=== PATIENT | male | born 1955 | race Caucasian/White ===

== ENCOUNTER 2016-04-12 14:35 | Inpatient (IN) | payer BC ==
[2016-04-12] MEDS ORDERED: ASPIRIN 81 MG TABLET, CHEWABLE PO ONE (14:48)
--- NOTE | 2016-04-12 14:51 | ER Document Report ---
ED Medical Screen (RME) - General Stated Complaint: SHORTNESS OF BREATH, NECK PAIN Mode of Arrival: Ambulatory Information source: Patient Notes: 60 y/o M presents to ED c/o sob and associated bilateral neck pain since this morning. States sob is worse with exertion. Denies fever, recent illness, or chest pain. TRAVEL OUTSIDE OF THE [place] IN LAST 30 DAYS: No - Related Data Allergies/Adverse Reactions: No Known Allergies Allergy (Verified 04/12/16 14:48) Past Medical History - Past Medical History Cardiac Medical History: Reports: Hx Hypercholesterolemia, Hx Hypertension - pt' s md took him bp meds Pulmonary Medical History: Reports: Hx Bronchitis Denies: Hx Tuberculosis GI Medical History: Reports: Hx Gastroesophageal Reflux Disease Musculoskeltal Medical History: Reports Hx Arthritis Psychiatric Medical History: Reports: Hx Depression Past Surgical History: Reports: Hx Abdominal Surgery - hernia repair, Hx Herniorrhaphy, Hx Orthopedic Surgery - bilateral knee replacements, Hx Tonsillectomy - 1960 - Immunizations Hx Diphtheria, Pertussis, Tetanus Vaccination: No Physical Exam - General General appearance: Alert In distress: None - Respiratory Respiratory status: No respiratory distress Breath sounds: Normal - Cardiovascular Pulses: Normal: Radial
[2016-04-12 15:15] LABS: ABSOLUTE BASOPHILS # (AUTO) 0.1 10^3/uL (0.0-0.2); ABSOLUTE EOSINOPHILS # (AUTO) 0.1 10^3/uL (0.0-0.6); ABSOLUTE LYMPHOCYTES (AUTO) 1.8 10^3/uL (0.5-4.7); ABSOLUTE MONOCYTES (AUTO) 0.6 10^3/uL (0.1-1.4); ABSOLUTE NEUT (AUTO) 5.1 10^3/uL (1.7-8.2); BASOPHILS % (AUTO) 0.7 % (0-2); EOSINOPHILS % (AUTO) 1.6 % (0-6); HEMATOCRIT 42.3 % (37.9-51.0); HEMOGLOBIN 14.4 g/dL (13.5-17.0); HGB HCT DIFFERENCE 0.9; LYMPHOCYTES % (AUTO) 23.3 % (13-45); MEAN CORPUSCULAR HEMOGLOBIN 28.5 pg (27.0-33.4); MEAN CORPUSCULAR VOLUME 84 fl (80-97); MONOCYTES % (AUTO) 7.9 % (3-13); RED BLOOD COUNT 5.06 10^6/uL (4.35-5.55); RED CELL DISTRIBUTION WIDTH 14.2 % (11.5-14.0); SEGMENTED NEUTROPHILS % (AUTO) 66.5 % (42-78); WHITE BLOOD COUNT 7.7 10^3/uL (4.0-10.5)
[2016-04-12 15:28] LABS: BLOOD UREA NITROGEN 14 mg/dL (7-20); CALCIUM 9.4 mg/dL (8.4-10.2); CREATININE RESULT 0.84 mg/dL (0.52-1.25); GLUCOSE 103 mg/dL (75-110)
[2016-04-12 15:29] LABS: ALANINE AMINOTRANSFERASE 45 U/L (21-72); ALBUMIN 4.2 g/dL (3.5-5.0); ALKALINE PHOSPHATASE 105 U/L (38-126); ANION GAP 10 (5-19); ASPARTATE AMINO TRANSFERASE 35 U/L (17-59); BILIRUBIN,TOTAL 0.7 mg/dL (0.2-1.3); CARBON DIOXIDE 22 mmol/L (22-30); CHLORIDE 108 mmol/L (98-107); CREATINE KINASE 533 U/L (55-170); POTASSIUM 4.2 mmol/L (3.6-5.0); SODIUM 139.6 mmol/L (137-145)
[2016-04-12] MEDS ORDERED: NORMAL SALINE 1000 ML 1,000 ML IV ONE (15:47)
[2016-04-12] MEDS ORDERED: NORMAL SALINE 1000 ML 500 ML IV ONE (15:47)
[2016-04-12 15:53] LABS: CREATINE KINASE MB 4.34 ng/mL (<4.55)
[2016-04-12 15:56] LABS: TROPONIN I < 0.012 ng/mL
[2016-04-12] MEDS ORDERED: ENOXAPARIN SODIUM INJ 120 MG/0.8 ML DISP.SYRIN SUBCUT SCH (16:45)
--- NOTE | 2016-04-12 16:45 | ER Document Report ---
ED General - General Chief Complaint: Shortness Of Breath Stated Complaint: SHORTNESS OF BREATH, NECK PAIN Mode of Arrival: Ambulatory TRAVEL OUTSIDE OF THE [place] IN LAST 30 DAYS: No - HPI Patient complains to provider of: neck pain shortness of breath Notes: Patient coming in today with acute onset of shortness of breath. Patient also states he was having neck pain. 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 Patient has a history of PE. Patient currently has stable vital signs is no obvious distress. Denies any recent fevers chills nausea vomiting diarrhea chest pain abdominal pain. - Related Data Allergies/Adverse Reactions: No Known Allergies Allergy (Verified 04/12/16 14:48) Home Medications: Current Home Medications No Home Medications 04/12/16 [History] Past Medical History - General Information source: Patient - Social History Smoking Status: Current Some Day Smoker Chew tobacco use (# tins/day): No Frequency of alcohol use: None Drug Abuse: None Family History: Reviewed & Not Pertinent Patient has suicidal ideation: No Patient has homicidal ideation: No - Past Medical History Cardiac Medical History: Reports: Hx Hypercholesterolemia, Hx Hypertension - pt' s md took him bp meds Pulmonary Medical History: Reports: Hx Bronchitis Denies: Hx Tuberculosis Renal/ Medical History: Denies: Hx Peritoneal Dialysis GI Medical History: Reports: Hx Gastroesophageal Reflux Disease Musculoskeltal Medical History: Reports Hx Arthritis Psychiatric Medical History: Reports: Hx Depression Past Surgical History: Reports: Hx Abdominal Surgery - hernia repair, Hx Herniorrhaphy, Hx Orthopedic Surgery - bilateral knee replacements, Hx Tonsillectomy - 1960 - Immunizations Hx Diphtheria, Pertussis, Tetanus Vaccination: No Review of Systems - Review of Systems Constitutional: No symptoms reported EENT: No symptoms reported Cardiovascular: Chest pain Respiratory: Cough, Short of breath Gastrointestinal: No symptoms reported Genitourinary: No symptoms reported Male Genitourinary: No symptoms reported Musculoskeletal: No symptoms reported Skin: No symptoms reported Hematologic/Lymphatic: No symptoms reported Neurological/Psychological: No symptoms reported -: Yes All other systems reviewed and negative Physical Exam - Vital signs Vitals: Resp Pulse Ox 16 95 04/12/16 15:32 04/12/16 15:32 Interpretation: Normal - General General appearance: Appears well, Alert - HEENT Head: Normocephalic, Atraumatic Eyes: Normal Pupils: PERRL Notes: Patient has tenderness to palpation of his neck along the sternocleidomastoid muscle no bruits auscultated - Respiratory Respiratory status: No respiratory distress Chest status: Nontender Breath sounds: Normal Chest palpation: Normal - Cardiovascular Rhythm: Regular Heart sounds: Normal auscultation Murmur: No - Abdominal Inspection: Normal Distension: No distension Bowel sounds: Normal Tenderness: Nontender Organomegaly: No organomegaly - Back Back: Normal, Nontender - Extremities General upper extremity: Normal inspection, Nontender, Normal color, Normal ROM , Normal temperature General lower extremity: Normal inspection, Nontender, Normal color, Normal ROM , Normal temperature, Normal weight bearing. No: Lei's sign - Neurological Neuro grossly intact: Yes Cognition: Normal Orientation: AAOx4 Elmer Coma Scale Eye Opening: Spontaneous Elmer Coma Scale Verbal: Oriented Elmer Coma Scale Motor: Obeys Commands Elmer Coma Scale Total: 15 Speech: Normal Motor strength normal: LUE, RUE, LLE, RLE Sensory: Normal - Psychological Associated symptoms: Normal affect, Normal mood - Skin Skin Temperature: Warm Skin Moisture: Dry Skin Color: Normal Course - Re-evaluation Re-evalutation: 04/12/16 19:53 CTA of the neck CT of the chest was performed showing multiple PEs saddle PE have PE burden. Otherwise patient's hemodynamically stable. Consult the hospitalist service although the patient seemed medically stable due to his large PE burden will admit the patient for further evaluation. Requesting Lovenox which was a release coordinator per hospitalist request. Patient will be admitted for further evaluation. Bilateral Dopplers were performed showing also patient has a DVT. - Vital Signs Vital signs: Temp Pulse Resp BP Pulse Ox 16 138/98 H 94 04/12/16 18:00 04/12/16 16:25 04/12/16 18:00 - Laboratory Result Diagrams: 04/12/16 15:00 04/12/16 15:00 Laboratory results interpreted by me: 04/12/16 04/12/16 15:00 15:00 RDW 14.2 H Plt Count 111 L Chloride 108 H Creatine Kinase 533 H Critical Care Note - Critical Care Note Total time excluding time spent on procedures (mins): 35 Comments: Multiple evaluations for patient with multiple PEs Discharge - Discharge Clinical Impression: Saddle pulmonary embolus Qualifiers: Chronicity: acute Acute cor pulmonale presence: without acute cor pulmonale Qualified Code(s): I26.92 - Saddle embolus of pulmonary artery without acute cor pulmonale Deep vein thrombosis (DVT) of right lower extremity Qualifiers: Affected thrombotic vein of extremity: tibial Chronicity: unspecified Qualified Code(s): I82.441 - Acute embolism and thrombosis of right tibial vein Disposition: ADMITTED INPATIENT Admitting Provider: Hospitalist - [facility] Admitted: Telemetry
[2016-04-12 17:32] LABS: PROTHROMBIN TIME 14.4 SEC (11.4-15.4)
[2016-04-12 17:33] LABS: PARTIAL THROMBOPLASTIN TIME 30.9 SEC (23.5-35.8)
--- NOTE | 2016-04-12 18:03 | XCELERA REPORT ---
[address] [address] Lower Extremity Venous Evaluation Name: ANDREW PEREZ Age: 60 yrs Gender: Male : 1955 Patient Status: Inpatient Patient Location: \S\ED02\S\A Study Date: 04/12/2016 05:03 PM Procedure: Color flow and duplex imaging bilaterally of the veins of the lower extremities as well as the Common Femoral veins. Reason For Study: massive pe eval for dvt Ordering Physician: NERIS CORRAL Performed By: Chiki Hall Right Sided Venous Evaluation Abnormal vessel filling, lack of compression and no Colour flow in one of two Posterior Tibial veins, otherwise normal veins. Left Sided Venous Evaluation Normal vessel filling wall to wall, compression and augmentation as well as Colour flow down to the infrageniculate veins. Critical Findings Called in to the ER at 1800. Interpretation Summary Limited DVT in right leg. : NERIS CORRAL > Tomás Soto
[2016-04-12] MEDS ORDERED: ACETAMINOPHEN 325 MG TABLET PO PRN (18:11)
--- NOTE | 2016-04-12 18:28 | PDOC H&P ---
History of Present Illness Admission Date/PCP: 04/12/16 17:23 KAILASH GAGE MD Patient complains of: Shortness of breath and neck pain History of Present Illness: ANDREW PEREZ is a 60 year old male Was at work is evening at [employer] where he works in the [employer] department When he started feeling extremely short of breath Without any chest pain Patient was brought to the ED for evaluation; CTA of the neck was unremarkable CTA of the chest showed acute bilateral pulmonary emboli Venous ultrasound lower extremities was consistent with DVT in the right posterior tibial veins Patient received Lovenox at 1 mg per KG and was subsequently admitted under hospitalist service to telemetry unit Past Medical History Cardiac Medical History: Reports: Hyperlipidema, Hypertension - pt's md took him bp meds Pulmonary Medical History: Reports: Bronchitis Denies: Tuberculosis GI Medical History: Reports: Gastroesophageal Reflux Disease Musculoskeltal Medical History: Reports: Arthritis Psychiatric Medical History: Reports: Depression Past Surgical History Past Surgical History: Reports: Herniorrhaphy, Orthopedic Surgery - bilateral knee replacements, Tonsillectomy - 1960 Social History Smoking Status: Current Some Day Smoker Hx Recreational Drug Use: No Hx Prescription Drug Abuse: No - Advance Directive Resuscitation Status: Full Code Surrogate healthcare decision maker:: Cornelia Family History Family History: Malignancy Parental Family History Reviewed: Yes - father cancer brain , mom alive healthy Children Family History Reviewed: Yes Sibling(s) Family History Reviewed.: Yes - 2 brothres, 1 sister healthy - no blood clots . Medication/Allergy Home Medications: No Home Medications 04/12/16 Allergies/Adverse Reactions: No Known Allergies Allergy (Verified 04/12/16 14:48) Physical Exam Vital Signs: Temp Pulse Resp BP Pulse Ox 20 138/98 H 94 04/12/16 16:25 04/12/16 16:25 04/12/16 16:25 General appearance: PRESENT: no acute distress, well-developed, well-nourished Head exam: PRESENT: atraumatic, normocephalic Eye exam: PRESENT: conjunctiva pink, EOMI, PERRLA. ABSENT: scleral icterus Ear exam: PRESENT: normal external ear exam Mouth exam: PRESENT: moist, tongue midline Neck exam: ABSENT: carotid bruit, JVD, lymphadenopathy, thyromegaly Respiratory exam: PRESENT: clear to auscultation angie. ABSENT: rales, rhonchi, wheezes Cardiovascular exam: PRESENT: RRR. ABSENT: diastolic murmur, rubs, systolic murmur Pulses: PRESENT: normal dorsalis pedis pul Vascular exam: PRESENT: normal capillary refill GI/Abdominal exam: PRESENT: normal bowel sounds, soft. ABSENT: distended, guarding, mass, organolmegaly, rebound, tenderness Rectal exam: PRESENT: deferred Extremities exam: PRESENT: full ROM. ABSENT: calf tenderness, clubbing, pedal edema Neurological exam: PRESENT: alert, awake, oriented to person, oriented to place , oriented to time, oriented to situation, CN II-XII grossly intact. ABSENT: motor sensory deficit Psychiatric exam: PRESENT: appropriate affect, normal mood. ABSENT: homicidal ideation, suicidal ideation Skin exam: PRESENT: dry, intact, warm. ABSENT: cyanosis, rash Results Laboratory Results: Labs- Entire Visit 04/12/16 04/12/16 04/12/16 15:00 15:00 15:00 WBC 7.7 RBC 5.06 Hgb 14.4 Hct 42.3 MCV 84 MCH 28.5 MCHC 34.0 RDW 14.2 H Plt Count 111 L Seg Neutrophils % 66.5 Lymphocytes % 23.3 Monocytes % 7.9 Eosinophils % 1.6 Basophils % 0.7 Absolute Neutrophils 5.1 Absolute Lymphocytes 1.8 Absolute Monocytes 0.6 Absolute Eosinophils 0.1 Absolute Basophils 0.1 PT INR APTT Sodium 139.6 Potassium 4.2 Chloride 108 H Carbon Dioxide 22 Anion Gap 10 BUN 14 Creatinine 0.84 Est GFR ( Amer) > 60 Est GFR (Non-Af Amer) > 60 Glucose 103 Calcium 9.4 Total Bilirubin 0.7 Direct Bilirubin 0.0 AST 35 ALT 45 Alkaline Phosphatase 105 Creatine Kinase 533 H CK-MB (CK-2) 4.34 Troponin I < 0.012 Total Protein 7.0 Albumin 4.2 04/12/16 16:20 WBC RBC Hgb Hct MCV MCH MCHC RDW Plt Count Seg Neutrophils % Lymphocytes % Monocytes % Eosinophils % Basophils % Absolute Neutrophils Absolute Lymphocytes Absolute Monocytes Absolute Eosinophils Absolute Basophils PT 14.4 INR 1.08 APTT 30.9 Sodium Potassium Chloride Carbon Dioxide Anion Gap BUN Creatinine Est GFR ( Amer) Est GFR (Non-Af Amer) Glucose Calcium Total Bilirubin Direct Bilirubin AST ALT Alkaline Phosphatase Creatine Kinase CK-MB (CK-2) Troponin I Total Protein Albumin 04/12/16 04/12/16 15:00 15:00 Creatine Kinase 533 H Troponin I < 0.012 Impressions: Chest/Abdomen CTA 04/12/16 15:05 IMPRESSION: Bilateral heavy burden of pulmonary emboli Neck CTA 04/12/16 15:43 IMPRESSION: Mild calcified plaque at the origins of the right and left internal carotid arteries. No evidence of dissection. Assessment & Plan - Diagnosis (1) Deep vein thrombosis (DVT) of right lower extremity Qualifiers: Affected thrombotic vein of extremity: tibial Chronicity: unspecified Qualified Code(s): I82.441 - Acute embolism and thrombosis of right tibial vein Is this a current diagnosis for this admission?: YesPlan: Continue Lovenox as ordered (2) Saddle pulmonary embolus Qualifiers: Chronicity: acute Acute cor pulmonale presence: without acute cor pulmonale Qualified Code(s): I26.92 - Saddle embolus of pulmonary artery without acute cor pulmonale Is this a current diagnosis for this admission?: YesPlan: Continue Lovenox as initiated We'll schedule the patient for an echocardiogram in a.m. Hypercoagulability syndrome workup will be initiated Labs to be drawn in a.m. Dr. Molina hematology will be consulted - Time Time Spent with patient: Patient was admitted to telemetry unit as an inpatient Time Spent: 50 to 70 Minutes - Inpatient Certification Based on my medical assessment, after consideration of the patient's comorbidities, presenting symptoms, or acuity I expect that the services needed warrant INPATIENT care.: Yes I certify that my determination is in accordance with my understanding of Medicare's requirements for reasonable and necessary INPATIENT services [42 CFR 412.3e].: Yes Medical Necessity: Need Close Monitoring Due to Risk of Patient Decompensation, Need For Continuous Telemetry Monitoring
[2016-04-12] MEDS ORDERED: ENOXAPARIN SODIUM INJ 120 MG/0.8 ML DISP.SYRIN SUBCUT ONE (19:30)
[2016-04-12] MEDS ORDERED: NICOTINE 21 MG/24 HR PATCH.TD24 TD PRN (20:28)
--- NOTE | 2016-04-12 22:12 | EKG REPORT ---
SEVERITY:- NORMAL ECG - SINUS RHYTHM : Confirmed by: Nathan Yoo 12-Apr-2016 22:12:25
[2016-04-12] MEDS ORDERED: INFLUENZA ADLT QUAD (36MOS+) 2016-17 VAC 0.5 ML SYR IM PRN (23:03)
[2016-04-13] MEDS: LANSOPRAZOLE 15 MG TAB.RAP.DR PO SCH ×2 (05:36→16:54)
[2016-04-13 06:43] LABS: PROTHROMBIN TIME 13.7 SEC (11.4-15.4)
[2016-04-13 06:44] LABS: PARTIAL THROMBOPLASTIN TIME 36.2 SEC (23.5-35.8)
[2016-04-13 06:52] LABS: CHOLESTEROL 188.32 mg/dL (0-200); Direct HDL 25 mg/dL (>40); TRIGLYCERIDES 286 mg/dL (<150)
[2016-04-13 07:03] LABS: DIRECT LDL 122 mg/dL (<100)
[2016-04-13 07:06] LABS: VLDL CHOLESTEROL 57.2 mg/dL (10-31)
[2016-04-13] MEDS ORDERED: ENOXAPARIN SODIUM INJ 120 MG/0.8 ML DISP.SYRIN SUBCUT SCH (10:00)
--- NOTE | 2016-04-13 18:13 | PDOC PROGRESS REPORT ---
Subjective Progress Note for:: 04/13/16 Subjective:: Patient is feeling well He has no shortness of breath no chest pain He appears well On the monitor he has no cardiac arrhythmia Physical Exam Vital Signs: Temp Pulse Resp BP Pulse Ox 97.9 F 82 20 141/102 H 97 04/13/16 15:30 04/13/16 15:30 04/13/16 15:30 04/13/16 15:30 04/13/16 15:30 Intake & Output 04/12/16 04/13/16 04/14/16 00:59 00:59 00:59 Intake Total 240 1050 Balance 240 1050 Weight 111 kg 111 kg General appearance: PRESENT: no acute distress, well-developed, well-nourished Head exam: PRESENT: atraumatic, normocephalic Eye exam: PRESENT: conjunctiva pink, EOMI, PERRLA. ABSENT: scleral icterus Ear exam: PRESENT: normal external ear exam Mouth exam: PRESENT: moist, tongue midline Neck exam: ABSENT: carotid bruit, JVD, lymphadenopathy, thyromegaly Respiratory exam: PRESENT: clear to auscultation angie. ABSENT: rales, rhonchi, wheezes Cardiovascular exam: PRESENT: RRR. ABSENT: diastolic murmur, rubs, systolic murmur Pulses: PRESENT: normal dorsalis pedis pul Vascular exam: PRESENT: normal capillary refill GI/Abdominal exam: PRESENT: normal bowel sounds, soft. ABSENT: distended, guarding, mass, organolmegaly, rebound, tenderness Rectal exam: PRESENT: deferred Extremities exam: PRESENT: full ROM. ABSENT: calf tenderness, clubbing, pedal edema Neurological exam: PRESENT: alert, awake, oriented to person, oriented to place , oriented to time, oriented to situation, CN II-XII grossly intact. ABSENT: motor sensory deficit Psychiatric exam: PRESENT: appropriate affect, normal mood. ABSENT: homicidal ideation, suicidal ideation Skin exam: PRESENT: dry, intact, warm. ABSENT: cyanosis, rash Results Laboratory Results: 04/13/16 04/13/16 06:22 06:22 Triglycerides 286 H Cholesterol 188.32 LDL Cholesterol Direct 122 H VLDL Cholesterol 57.2 H HDL Cholesterol 25 L TSH 0.38 L 04/12/16 19:22 Troponin I 0.019 Impressions: Chest/Abdomen CTA 04/12/16 15:05 IMPRESSION: Bilateral heavy burden of pulmonary emboli Neck CTA 04/12/16 15:43 IMPRESSION: Mild calcified plaque at the origins of the right and left internal carotid arteries. No evidence of dissection. Assessment & Plan - Diagnosis (1) Deep vein thrombosis (DVT) of right lower extremity Qualifiers: Affected thrombotic vein of extremity: tibial Chronicity: unspecified Qualified Code(s): I82.441 - Acute embolism and thrombosis of right tibial vein Is this a current diagnosis for this admission?: Yes (2) Saddle pulmonary embolus Qualifiers: Chronicity: acute Acute cor pulmonale presence: without acute cor pulmonale Qualified Code(s): I26.92 - Saddle embolus of pulmonary artery without acute cor pulmonale Is this a current diagnosis for this admission?: Yes - Time Time Spent with patient: Treatment with xarelto was initiated ; we will discontinue Lovenox in a.m. Patient may be discharged in a.m. if stable Time Spent with patient: 25-34 minutes
--- NOTE | 2016-04-13 18:37 | PDOC CONSULTATION ---
Consultation Consult Date: 04/13/16 Consult reason:: Bilateral PE History of Present Illness Admission Date/PCP: 04/12/16 18:11 KAILASH GAGE MD History of Present Illness: ANDREW PEREZ is a 60 year old male with a prior PE in 2011 and tobacco abuse who presented with non provoked PE currently on Lovenox. He reports being at work last evening at [employer] where he works in the [employer] department When he started feeling extremely short of breath Without any chest pain. He was brought to the ED for evaluation; CTA of the neck was unremarkable CTA of the chest showed acute bilateral pulmonary emboli Venous ultrasound lower extremities was consistent with DVT in the right posterior tibial veins Patient received Lovenox at 1 mg per KG and was subsequently admitted under hospitalist service to telemetry unit. He reports a similar incident in 2011 and was treated with Xarelto at that time for 6 months. He denies any recent trips or FH of hypercoaguable state. Past Medical History Cardiac Medical History: Reports: Hyperlipidema, Hypertension - pt's md took him bp meds Pulmonary Medical History: Reports: Bronchitis, Other - PE in 2011 Denies: Tuberculosis GI Medical History: Reports: Gastroesophageal Reflux Disease Musculoskeltal Medical History: Reports: Arthritis Psychiatric Medical History: Reports: Depression Past Surgical History Past Surgical History: Reports: Herniorrhaphy, Orthopedic Surgery - bilateral knee replacements, Tonsillectomy - 1960 Social History Lives with: Spouse/Significant other Smoking Status: Current Some Day Smoker Cigarettes Packs Per Day: 1.5 Frequency of Alcohol Use: None Hx Recreational Drug Use: No Hx Prescription Drug Abuse: No - Advance Directive Resuscitation Status: Full Code Family History Family History: Reviewed & Not Pertinent Parental Family History Reviewed: Yes Children Family History Reviewed: Yes Sibling(s) Family History Reviewed.: Yes Medication/Allergy Home Medications: No Home Medications 04/12/16 Allergies/Adverse Reactions: No Known Allergies Allergy (Verified 04/12/16 14:48) Review of Systems Constitutional: PRESENT: as per HPI Hematologic/Lymphatic: PRESENT: other - Prior PE Physical Exam Vital Signs: Temp Pulse Resp BP Pulse Ox 97.9 F 82 20 141/102 H 97 04/13/16 15:30 04/13/16 15:30 04/13/16 15:30 04/13/16 15:30 04/13/16 15:30 Intake & Output 04/12/16 04/13/16 04/14/16 06:59 06:59 06:59 Intake Total 540 750 Balance 540 750 Weight 111 kg General appearance: PRESENT: no acute distress Head exam: PRESENT: atraumatic, normocephalic Eye exam: PRESENT: EOMI, PERRLA Ear exam: PRESENT: normal external ear exam Mouth exam: PRESENT: moist, tongue midline Respiratory exam: PRESENT: clear to auscultation angie Cardiovascular exam: PRESENT: RRR Pulses: PRESENT: normal dorsalis pedis pul Extremities exam: PRESENT: other - Bilateral Knee TKR Neurological exam: PRESENT: alert, oriented to person, oriented to place, oriented to time, oriented to situation Results Laboratory Results: 04/13/16 04/13/16 06:22 06:22 Triglycerides 286 H Cholesterol 188.32 LDL Cholesterol Direct 122 H VLDL Cholesterol 57.2 H HDL Cholesterol 25 L TSH 0.38 L 04/12/16 19:22 Troponin I 0.019 Impressions: Chest/Abdomen CTA 04/12/16 15:05 IMPRESSION: Bilateral heavy burden of pulmonary emboli Neck CTA 04/12/16 15:43 IMPRESSION: Mild calcified plaque at the origins of the right and left internal carotid arteries. No evidence of dissection. Assessment & Plan - Diagnosis (1) Deep vein thrombosis (DVT) of right lower extremity Qualifiers: Affected thrombotic vein of extremity: tibial Chronicity: unspecified Qualified Code(s): I82.441 - Acute embolism and thrombosis of right tibial vein Is this a current diagnosis for this admission?: YesPlan: Anticoagulation per PE (2) Acute pulmonary embolus Is this a current diagnosis for this admission?: YesPlan: Proceed with hypercoaguable workup. Since hemodymically stable and asymptomatic , will convert to Xarelto if ok with the primary team. Also encouraged smoking cessation. - Time Time Spent: 50 to 70 Minutes Critical Time spent with patient: 25-34 minutes Medications reviewed and adjusted accordingly: Yes Anticipated discharge: Home Within: within 48 hours, within 36 hours
[2016-04-13] MEDS: RIVAROXABAN 15 MG TABLET PO SCH (21:17)
[2016-04-13] MEDS ORDERED: ATORVASTATIN CALCIUM 20 MG TABLET PO SCH (22:00)
[2016-04-14 05:02] LABS: HEMATOCRIT 42.9 % (37.9-51.0); HEMOGLOBIN 14.4 g/dL (13.5-17.0); HGB HCT DIFFERENCE 0.3; MEAN CORPUSCULAR HEMOGLOBIN 27.9 pg (27.0-33.4); MEAN CORPUSCULAR HGB CONC 33.4 g/dL (32.0-36.0); MEAN CORPUSCULAR VOLUME 84 fl (80-97); RED BLOOD COUNT 5.14 10^6/uL (4.35-5.55); RED CELL DISTRIBUTION WIDTH 13.7 % (11.5-14.0); WHITE BLOOD COUNT 6.3 10^3/uL (4.0-10.5)
[2016-04-14] MEDS: LANSOPRAZOLE 15 MG TAB.RAP.DR PO SCH (05:50)
[2016-04-14 06:37] LABS: FREE T3 4.08 pg/mL (2.77-5.27)
[2016-04-14] MEDS: RIVAROXABAN 15 MG TABLET PO SCH (09:45)
--- NOTE | 2016-04-14 10:44 | PDOC DISCHARGE SUMMARY ---
General - Admit/Disc Date/PCP Admission Date/Primary Care Provider: 04/12/16 18:11 KAILASH GAGE MD Discharge Date: 04/14/16 - Discharge Diagnosis (1) Deep vein thrombosis (DVT) of right lower extremity Is this a current diagnosis for this admission?: YesSummary: Evidence of right posterior tibial DVT on venous Doppler (2) Saddle pulmonary embolus Is this a current diagnosis for this admission?: YesSummary: Saddle pulmonary emboli and bilateral heavy load emboli She did not have any hemodynamic instability and or severe hypoxemia He did not have severe pleuritic chest pain Patient was initially treated with Lovenox subcutaneous and switched to xarelto His hospital stay was uneventful (3) Hypertension Is this a current diagnosis for this admission?: YesSummary: Started patient on Norvasc 5 mg daily Follow-up at primary care's office in a week time (4) Hyperlipemia Is this a current diagnosis for this admission?: YesSummary: Lipitor was initiated Low fat diet (5) Cigarette smoker Is this a current diagnosis for this admission?: YesSummary: Prescribed nicotine patch Tobacco cessation was discussed (6) Secondary hypercoagulability disorder Is this a current diagnosis for this admission?: YesSummary: Workup in progress Patient to be followed at Dr. Molina's office Lifetime anticoagulation likely as patient had unprovoked recurrent DVT and PE - Additional Information Resuscitation Status: Full Code Discharge Diet: Cardiac, Other (Comments) - low fat Discharge Activity: Activity As Tolerated Home Medications: Amlodipine Besylate [Norvasc 5 mg Tablet] 5 mg PO DAILY #30 tablet 04/14/16 Atorvastatin Calcium [Lipitor 20 mg Tablet] 20 mg PO QHS #30 tablet 04/14/16 Nicotine [Nicoderm 21 mg/24 Hr Transderm Patch] 1 each TD DAILYP PRN #30 patch.td24 04/14/16 Rivaroxaban [Xarelto 15 mg Tablet] 15 mg PO Q12 #42 tablet 04/14/16 Rivaroxaban [Xarelto] 20 mg PO DAILY #30 tablet 04/14/16 Tramadol HCl [Ultram 50 mg Tablet] 50 mg PO Q6HP PRN #30 tablet 04/14/16 History of Present Illness Patient complains of: Shortness of breath History of Present Illness: ANDREW PEREZ is a 60 year old male 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 When he started feeling extremely short of breath Without any chest pain Patient was brought to the ED for evaluation; CTA of the neck was unremarkable CTA of the chest showed acute bilateral pulmonary emboli Venous ultrasound lower extremities was consistent with DVT in the right posterior tibial veins Patient received Lovenox at 1 mg per KG and was subsequently admitted under hospitalist service to telemetry unit Hospital Course Hospital Course: Patient was admitted with multiple pulmonary emboli and DVT episode was unprovoked and second occurrence Patient was admitted to telemetry unit ,anticoagulated ; his course was uneventful Patient likely has hypercoagulability syndrome Workup was initiated Patient is to be followed in the office by hematology , Physical Exam Vital Signs: Temp Pulse Resp BP Pulse Ox 97.6 F 75 18 148/95 H 97 04/14/16 07:41 04/14/16 07:41 04/14/16 07:41 04/14/16 07:41 04/14/16 07:41 Intake & Output 04/13/16 04/14/16 04/15/16 00:59 00:59 00:59 Intake Total 240 2310 240 Balance 240 2310 240 Weight 111 kg 111 kg 107.7 kg General appearance: PRESENT: no acute distress, well-developed, well-nourished Head exam: PRESENT: atraumatic, normocephalic Eye exam: PRESENT: conjunctiva pink, EOMI, PERRLA. ABSENT: scleral icterus Ear exam: PRESENT: normal external ear exam Mouth exam: PRESENT: moist, tongue midline Neck exam: ABSENT: carotid bruit, JVD, lymphadenopathy, thyromegaly Respiratory exam: PRESENT: clear to auscultation angie. ABSENT: rales, rhonchi, wheezes Cardiovascular exam: PRESENT: RRR. ABSENT: diastolic murmur, rubs, systolic murmur Pulses: PRESENT: normal dorsalis pedis pul Vascular exam: PRESENT: normal capillary refill GI/Abdominal exam: PRESENT: normal bowel sounds, soft. ABSENT: distended, guarding, mass, organolmegaly, rebound, tenderness Rectal exam: PRESENT: deferred Extremities exam: PRESENT: full ROM. ABSENT: calf tenderness, clubbing, pedal edema Neurological exam: PRESENT: alert, awake, oriented to person, oriented to place , oriented to time, oriented to situation, CN II-XII grossly intact. ABSENT: motor sensory deficit Psychiatric exam: PRESENT: appropriate affect, normal mood. ABSENT: homicidal ideation, suicidal ideation Skin exam: PRESENT: dry, intact, warm. ABSENT: cyanosis, rash Results Laboratory Results: 04/14/16 04:50 04/14/16 04/14/16 04/14/16 04:50 04:50 04:50 WBC 6.3 RBC 5.14 Hgb 14.4 Hct 42.9 MCV 84 MCH 27.9 MCHC 33.4 RDW 13.7 Plt Count 108 L Prostate Specific Ag 0.360 Free T4 0.85 Free T3 pg/mL 4.08 04/12/16 19:22 Troponin I 0.019 04/14/16 04:50 04/12/16 15:00 MCV 84 fl (80-97) 04/14/16 04:50 MCH 27.9 pg (27.0-33.4) 04/14/16 04:50 MCHC 33.4 g/dL (32.0-36.0) 04/14/16 04:50 RDW 13.7 % (11.5-14.0) 04/14/16 04:50 Seg Neutrophils % 66.5 % (42-78) 04/12/16 15:00 Lymphocytes % 23.3 % (13-45) 04/12/16 15:00 Monocytes % 7.9 % (3-13) 04/12/16 15:00 Eosinophils % 1.6 % (0-6) 04/12/16 15:00 Basophils % 0.7 % (0-2) 04/12/16 15:00 Absolute Neutrophils 5.1 10^3/uL (1.7-8.2) 04/12/16 15:00 Absolute Lymphocytes 1.8 10^3/uL (0.5-4.7) 04/12/16 15:00 Absolute Monocytes 0.6 10^3/uL (0.1-1.4) 04/12/16 15:00 Absolute Eosinophils 0.1 10^3/uL (0.0-0.6) 04/12/16 15:00 Absolute Basophils 0.1 10^3/uL (0.0-0.2) 04/12/16 15:00 Chloride 108 mmol/L (98-107) H 04/12/16 15:00 Carbon Dioxide 22 mmol/L (22-30) 04/12/16 15:00 Anion Gap 10 (5-19) 04/12/16 15:00 Est GFR ( Amer) > 60 (>60) 04/12/16 15:00 Est GFR (Non-Af Amer) > 60 (>60) 04/12/16 15:00 Glucose 103 mg/dL (75-110) 04/12/16 15:00 Calcium 9.4 mg/dL (8.4-10.2) 04/12/16 15:00 Total Bilirubin 0.7 mg/dL (0.2-1.3) 04/12/16 15:00 AST 35 U/L (17-59) 04/12/16 15:00 ALT 45 U/L (21-72) 04/12/16 15:00 Alkaline Phosphatase 105 U/L (38-126) 04/12/16 15:00 Total Protein 7.0 g/dL (6.3-8.2) 04/12/16 15:00 Albumin 4.2 g/dL (3.5-5.0) 04/12/16 15:00 Triglycerides 286 mg/dL (<150) H 04/13/16 06:22 Cholesterol 188.32 mg/dL (0-200) 04/13/16 06:22 LDL Cholesterol Direct 122 mg/dL (<100) H 04/13/16 06:22 VLDL Cholesterol 57.2 mg/dL (10-31) H 04/13/16 06:22 HDL Cholesterol 25 mg/dL (>40) L 04/13/16 06:22 Prostate Specific Ag 0.360 ng/mL (<4.00) 04/14/16 04:50 TSH 0.38 uIU/mL (0.47-4.68) L 04/13/16 06:22 Free T4 0.85 ng/dL (0.78-2.19) 04/14/16 04:50 Free T3 pg/mL 4.08 pg/mL (2.77-5.27) 04/14/16 04:50 04/12/16 04/12/16 04/12/16 15:00 15:00 19:22 Creatine Kinase 533 H CK-MB (CK-2) 4.34 Troponin I < 0.012 0.019 Labs- Entire Visit 04/12/16 04/12/16 04/12/16 15:00 15:00 15:00 WBC 7.7 RBC 5.06 Hgb 14.4 Hct 42.3 MCV 84 MCH 28.5 MCHC 34.0 RDW 14.2 H Plt Count 111 L Seg Neutrophils % 66.5 Lymphocytes % 23.3 Monocytes % 7.9 Eosinophils % 1.6 Basophils % 0.7 Absolute Neutrophils 5.1 Absolute Lymphocytes 1.8 Absolute Monocytes 0.6 Absolute Eosinophils 0.1 Absolute Basophils 0.1 PT INR APTT Sodium 139.6 Potassium 4.2 Chloride 108 H Carbon Dioxide 22 Anion Gap 10 BUN 14 Creatinine 0.84 Est GFR ( Amer) > 60 Est GFR (Non-Af Amer) > 60 Glucose 103 Calcium 9.4 Total Bilirubin 0.7 Direct Bilirubin 0.0 AST 35 ALT 45 Alkaline Phosphatase 105 Creatine Kinase 533 H CK-MB (CK-2) 4.34 Troponin I < 0.012 Total Protein 7.0 Albumin 4.2 Triglycerides Cholesterol LDL Cholesterol Direct VLDL Cholesterol HDL Cholesterol Prostate Specific Ag TSH Free T4 Free T3 pg/mL 04/12/16 04/12/16 04/13/16 16:20 19:22 06:22 WBC RBC Hgb Hct MCV MCH MCHC RDW Plt Count Seg Neutrophils % Lymphocytes % Monocytes % Eosinophils % Basophils % Absolute Neutrophils Absolute Lymphocytes Absolute Monocytes Absolute Eosinophils Absolute Basophils PT 14.4 13.7 INR 1.08 1.01 APTT 30.9 36.2 H Sodium Potassium Chloride Carbon Dioxide Anion Gap BUN Creatinine Est GFR ( Amer) Est GFR (Non-Af Amer) Glucose Calcium Total Bilirubin Direct Bilirubin AST ALT Alkaline Phosphatase Creatine Kinase CK-MB (CK-2) Troponin I 0.019 Total Protein Albumin Triglycerides Cholesterol LDL Cholesterol Direct VLDL Cholesterol HDL Cholesterol Prostate Specific Ag TSH Free T4 Free T3 pg/mL 04/13/16 04/13/16 04/14/16 06:22 06:22 04:50 WBC 6.3 RBC 5.14 Hgb 14.4 Hct 42.9 MCV 84 MCH 27.9 MCHC 33.4 RDW 13.7 Plt Count 108 L Seg Neutrophils % Lymphocytes % Monocytes % Eosinophils % Basophils % Absolute Neutrophils Absolute Lymphocytes Absolute Monocytes Absolute Eosinophils Absolute Basophils PT INR APTT Sodium Potassium Chloride Carbon Dioxide Anion Gap BUN Creatinine Est GFR ( Amer) Est GFR (Non-Af Amer) Glucose Calcium Total Bilirubin Direct Bilirubin AST ALT Alkaline Phosphatase Creatine Kinase CK-MB (CK-2) Troponin I Total Protein Albumin Triglycerides 286 H Cholesterol 188.32 LDL Cholesterol Direct 122 H VLDL Cholesterol 57.2 H HDL Cholesterol 25 L Prostate Specific Ag TSH 0.38 L Free T4 Free T3 pg/mL 04/14/16 04/14/16 04:50 04:50 WBC RBC Hgb Hct MCV MCH MCHC RDW Plt Count Seg Neutrophils % Lymphocytes % Monocytes % Eosinophils % Basophils % Absolute Neutrophils Absolute Lymphocytes Absolute Monocytes Absolute Eosinophils Absolute Basophils PT INR APTT Sodium Potassium Chloride Carbon Dioxide Anion Gap BUN Creatinine Est GFR ( Amer) Est GFR (Non-Af Amer) Glucose Calcium Total Bilirubin Direct Bilirubin AST ALT Alkaline Phosphatase Creatine Kinase CK-MB (CK-2) Troponin I Total Protein Albumin Triglycerides Cholesterol LDL Cholesterol Direct VLDL Cholesterol HDL Cholesterol Prostate Specific Ag 0.360 TSH Free T4 0.85 Free T3 pg/mL 4.08 Impressions: Chest/Abdomen CTA 04/12/16 15:05 IMPRESSION: Bilateral heavy burden of pulmonary emboli Neck CTA 04/12/16 15:43 IMPRESSION: Mild calcified plaque at the origins of the right and left internal carotid arteries. No evidence of dissection. Plan Discharge Plan: Discharged home on xarelto 15 mg twice a day ; follow-up with Dr. Gage in 1 week Follow-up with Dr. Molina as scheduled Time Spent: Greater than 30 Minutes
--- NOTE | 2016-04-14 10:49 | PDOC PROGRESS REPORT ---
Subjective Progress Note for:: 04/14/16 Subjective:: Patient doing well this morning. Physical Exam Vital Signs: Temp Pulse Resp BP Pulse Ox 97.6 F 75 18 148/95 H 97 04/14/16 07:41 04/14/16 07:41 04/14/16 07:41 04/14/16 07:41 04/14/16 07:41 Intake & Output 04/13/16 04/14/16 04/15/16 06:59 06:59 06:59 Intake Total 540 2250 Balance 540 2250 Weight 111 kg 107.7 kg General appearance: PRESENT: no acute distress, well-developed, well-nourished Head exam: PRESENT: atraumatic, normocephalic Eye exam: PRESENT: conjunctiva pink, EOMI, PERRLA. ABSENT: scleral icterus Ear exam: PRESENT: normal external ear exam Mouth exam: PRESENT: moist, tongue midline Neck exam: ABSENT: carotid bruit, JVD, lymphadenopathy, thyromegaly Respiratory exam: PRESENT: clear to auscultation angie. ABSENT: rales, rhonchi, wheezes Cardiovascular exam: PRESENT: RRR. ABSENT: diastolic murmur, rubs, systolic murmur Pulses: PRESENT: normal dorsalis pedis pul Vascular exam: PRESENT: normal capillary refill GI/Abdominal exam: PRESENT: normal bowel sounds, soft. ABSENT: distended, guarding, mass, organolmegaly, rebound, tenderness Rectal exam: PRESENT: deferred Extremities exam: PRESENT: full ROM. ABSENT: calf tenderness, clubbing, pedal edema Neurological exam: PRESENT: alert, awake, oriented to person, oriented to place , oriented to time, oriented to situation, CN II-XII grossly intact. ABSENT: motor sensory deficit Psychiatric exam: PRESENT: appropriate affect, normal mood. ABSENT: homicidal ideation, suicidal ideation Skin exam: PRESENT: dry, intact, warm. ABSENT: cyanosis, rash Results Laboratory Results: 04/14/16 04:50 04/14/16 04/14/16 04/14/16 04:50 04:50 04:50 WBC 6.3 RBC 5.14 Hgb 14.4 Hct 42.9 MCV 84 MCH 27.9 MCHC 33.4 RDW 13.7 Plt Count 108 L Prostate Specific Ag 0.360 Free T4 0.85 Free T3 pg/mL 4.08 04/12/16 19:22 Troponin I 0.019 Impressions: Chest/Abdomen CTA 04/12/16 15:05 IMPRESSION: Bilateral heavy burden of pulmonary emboli Neck CTA 04/12/16 15:43 IMPRESSION: Mild calcified plaque at the origins of the right and left internal carotid arteries. No evidence of dissection. Assessment & Plan - Diagnosis (1) Acute pulmonary embolus Qualifiers: Pulmonary embolism type: saddle Acute cor pulmonale presence: without acute cor pulmonale Qualified Code(s): I26.92 - Saddle embolus of pulmonary artery without acute cor pulmonale Is this a current diagnosis for this admission?: YesPlan: Discharge home today, will be on Xarelto 15mg BID x 21 days then 20mg daily thereafter, will need lifelong anticoagulation. He will have follow-up in our office one to 2 weeks from discharge. We will monitor him thereafter. - Time Time Spent with patient: 15-24 minutes Critical Time spent with patient: 15-24 minutes Smoking Cessation Education: 3 to 10 minutes Medications reviewed and adjusted accordingly: Yes Anticipated discharge: Home
[2016-04-14 12:10] VITALS: BP 140/79
[2016-04-14 12:37] LABS: PROTEIN S FREE 106 % (57-157); PROTEIN S TOTAL 119 % (60-150)
[2016-04-14 16:23] LABS: ANTITHROMBIN III ACTIVITY 91 % (75-135); PROTEIN S FUNCTIONAL 90 % (63-140)
[2016-04-16 13:38] LABS: FREE KAPPA LIGHT CHAINS 19.84 mg/L (3.30-19.40); FREE LAMBDA LIGHT CHAINS 12.69 mg/L (5.71-26.30)
[2016-04-17 07:09] LABS: PROTEIN C ACTIVITY 83 % (73-180); PROTEIN C ANTIGEN 57 % (60-150)
[2016-04-17 07:11] LABS: KAPPA LAMBDA RATIO 1.56 (0.26-1.65)
[2016-04-17 14:40] LABS: ALBUMIN 3 3.5 g/dL (2.9-4.4); ALPHA-1-GLOBULIN 0.2 g/dL (0.0-0.4); ALPHA-2-GLOBULIN 3 0.6 g/dL (0.4-1.0); IMMUNOGLOBULIN A 246 mg/dL (90-386); IMMUNOGLOBULIN G 1064 mg/dL (700-1600); IMMUNOGLOBULIN M 66 mg/dL (20-172); MONOCLONAL-SPIKE Not Observed g/dL (Not Observed); PROTEIN TOTAL SERUM 6.5 g/dL (6.0-8.5)
== END 2016-04-14 13:00 | disposition home or self-care (01) | DRG 176 ==
LOC: ER 14:35 → UNDOADMIN 17:23 → EH 17:23 → 5 18:39 → EH 18:39 → 5 04-14 08:58
PROVIDERS: ADMIT Emergency Medicine; ATTEND Emergency Medicine
PROC: 3E0234Z Introduction of Serum, Toxoid and Vaccine into Muscle, Percutaneous Approach (ICD-10-PCS; principal; 2016-04-14)
DX: I26.92 Saddle embolus of pulmonary artery without acute cor pulmonale (principal); I82.441 Acute embolism and thrombosis of right tibial vein; D68.69 Other thrombophilia; E78.5 Hyperlipidemia, unspecified; I10 Essential (primary) hypertension; K21.9 Gastro-esophageal reflux disease without esophagitis; M19.90 Unspecified osteoarthritis, unspecified site; F32.9 Major depressive disorder, single episode, unspecified; M54.2 Cervicalgia; F17.210 Nicotine dependence, cigarettes, uncomplicated; Z96.653 Presence of artificial knee joint, bilateral; Z23 Encounter for immunization; Z86.711 Personal history of pulmonary embolism
CPT/HCPCS: 36415; 70498; 71275; 80053; 80061; 81241; 82550; 82553; 83883; 84153; 84439; 84443; 84481; 84484; 85025; 85027; 85300; 85301; 85302; 85305; 85306; 85597; 85598; 85610; 85613; 85730; 85732; 86146; 86147; 86148; 86320; 86849; 90686; 93005; 93010; 93970; 96360; 99291; J1650; J7030

== ENCOUNTER 2016-07-09 15:14 | Emergency (ER) | payer BC ==
--- NOTE | 2016-07-09 18:16 | ER Document Report ---
ED Medical Screen (RME) - General Chief Complaint: Palpitations Stated Complaint: CHEST PAIN Mode of Arrival: Ambulatory Information source: Patient TRAVEL OUTSIDE OF THE [place] IN LAST 30 DAYS: No - HPI Onset: This morning Onset/Duration: Sudden Quality of pain: Fullness Severity: Mild Associated Symptoms: Dizzy/lightheaded, Weakness, Other - PALPITATIONS Exacerbated by: Other - ANY ACTIVITY Relieved by: Denies Similar symptoms previously: Yes - W/ P.E. Recently seen / treated by doctor: No - Related Data Smoking: Non-smoker Frequency of alcohol use: None Drug Abuse: None Allergies/Adverse Reactions: No Known Allergies Allergy (Verified 07/09/16 15:29) Past Medical History - General Information source: Patient - Social History Cigarette use (# per day): No Chew tobacco use (# tins/day): No Frequency of alcohol use: None Drug Abuse: None Lives with: Spouse/Significant other Family history: Other - DVT - Past Medical History Cardiac Medical History: Reports: Hx DVT, Hx Hypercholesterolemia, Hx Hypertension - pt's md took him bp meds, Hx Pulmonary Embolism Pulmonary Medical History: Reports: Hx Bronchitis Denies: Hx Tuberculosis Neurological Medical History: Reports: None Renal/ Medical History: Denies: Hx Peritoneal Dialysis Malignancy Medical History: Reports None GI Medical History: Reports: Hx Gastroesophageal Reflux Disease Musculoskeltal Medical History: Reports Hx Arthritis Psychiatric Medical History: Reports: Hx Depression Past Surgical History: Reports: Hx Abdominal Surgery - hernia repair, Hx Herniorrhaphy, Hx Orthopedic Surgery - bilateral knee replacements, Hx Tonsillectomy - 1960 - Immunizations Hx Diphtheria, Pertussis, Tetanus Vaccination: No Review of Systems - Review of Systems Constitutional: Diaphoresis EENT: No symptoms reported Cardiovascular: See HPI Respiratory: See HPI Gastrointestinal: No symptoms reported Physical Exam - Vital signs Vitals: Temp Pulse Resp BP Pulse Ox 99.0 F 95 18 127/79 H 96 07/09/16 15:29 07/09/16 15:29 07/09/16 15:29 07/09/16 15:29 07/09/16 15:29 Interpretation: Normal. No: Tachycardic, Hypoxic, Tachypneic - General General appearance: Appears well In distress: None - Respiratory Respiratory status: No respiratory distress Breath sounds: Normal - Cardiovascular Rhythm: Regular Heart sounds: Normal auscultation Murmur: No - Extremities General upper extremity: Normal inspection General lower extremity: Normal inspection Course - Re-evaluation Re-evalutation: 07/09/16 21:00 Results of laboratory work and imaging studies discussed with patient and spouse. - Vital Signs Vital signs: Temp Pulse Resp BP Pulse Ox 99.0 F 95 18 127/79 H 96 07/09/16 15:29 07/09/16 15:29 07/09/16 15:29 07/09/16 15:29 07/09/16 15:29 - Laboratory Result Diagrams: 07/09/16 18:25 07/09/16 18:25 Laboratory results interpreted by me: 07/09/16 07/09/16 18:25 18:25 RDW 14.3 H Alkaline Phosphatase 129 H Creatine Kinase 326 H - Diagnostic Test Radiology reviewed: Image reviewed, Reports reviewed - EKG Interpretation by Me EKG shows normal: Sinus rhythm Rate: Normal Rhythm: NSR Doctor's Discharge - Discharge Clinical Impression: Near syncope, Hx pulmonary embolism, Palpitations Condition: Stable Disposition: HOME, SELF-CARE Instructions: Palpitations (Irregular or Rapid Heartrate) ([facility]) Additional Instructions: CONTINUE PRESENT MEDS. FOLLOW UP WITH OUR PRIMARY CARE PROVIDER, CALL TOMORROW AM FOR EARLIEST POSSIBLE APPOINTMENT. RETURN TO E.R. IF YOU GET WORSE, ANY TIME.
--- NOTE | 2016-07-09 18:17 | EKG REPORT ---
SEVERITY:- OTHERWISE NORMAL ECG - SINUS RHYTHM LEFT AXIS DEVIATION : Confirmed by: Frank Yee MD 09-Jul-2016 18:16:42
[2016-07-09 18:51] LABS: ABSOLUTE BASOPHILS # (AUTO) 0.1 10^3/uL (0.0-0.2); ABSOLUTE EOSINOPHILS # (AUTO) 0.1 10^3/uL (0.0-0.6); ABSOLUTE LYMPHOCYTES (AUTO) 2.2 10^3/uL (0.5-4.7); ABSOLUTE MONOCYTES (AUTO) 0.4 10^3/uL (0.1-1.4); ABSOLUTE NEUT (AUTO) 5.8 10^3/uL (1.7-8.2); BASOPHILS % (AUTO) 0.7 % (0-2); EOSINOPHILS % (AUTO) 1.4 % (0-6); HEMATOCRIT 43.8 % (37.9-51.0); HEMOGLOBIN 14.5 g/dL (13.5-17.0); HGB HCT DIFFERENCE -0.3; LYMPHOCYTES % (AUTO) 25.6 % (13-45); MEAN CORPUSCULAR HEMOGLOBIN 28.1 pg (27.0-33.4); MEAN CORPUSCULAR HGB CONC 33.2 g/dL (32.0-36.0); MEAN CORPUSCULAR VOLUME 85 fl (80-97); RED BLOOD COUNT 5.18 10^6/uL (4.35-5.55); RED CELL DISTRIBUTION WIDTH 14.3 % (11.5-14.0); SEGMENTED NEUTROPHILS % (AUTO) 67.3 % (42-78); WHITE BLOOD COUNT 8.6 10^3/uL (4.0-10.5)
[2016-07-09 18:57] LABS: APPEARANCE,URINE CLEAR; BILIRUBIN,URINE NEGATIVE (NEGATIVE); GLUCOSE, URINE NEGATIVE (NEGATIVE); KETONES,URINE NEGATIVE (NEGATIVE); LEUKOCYTE ESTERASE,URINE NEGATIVE (NEGATIVE); NITRITE,URINE NEGATIVE (NEGATIVE); PROTEIN,URINE NEGATIVE (NEGATIVE); URINE SPECIFIC GRAVITY 1.008; UROBILINOGEN,URINE NEGATIVE mg/dL (<2.0)
[2016-07-09 19:06] LABS: ALANINE AMINOTRANSFERASE 42 U/L (21-72); ALBUMIN 4.2 g/dL (3.5-5.0); ALKALINE PHOSPHATASE 129 U/L (38-126); ANION GAP 12 (5-19); ASPARTATE AMINO TRANSFERASE 29 U/L (17-59); BILIRUBIN,DIRECT 0.3 mg/dL (0.0-0.4); BILIRUBIN,TOTAL 0.9 mg/dL (0.2-1.3); BLOOD UREA NITROGEN 11 mg/dL (7-20); CALCIUM 9.3 mg/dL (8.4-10.2); CARBON DIOXIDE 26 mmol/L (22-30); CHLORIDE 105 mmol/L (98-107); CREATINE KINASE 326 U/L (55-170); CREATININE RESULT 0.93 mg/dL (0.52-1.25); GLUCOSE 93 mg/dL (75-110); POTASSIUM 4.1 mmol/L (3.6-5.0); SODIUM 142.6 mmol/L (137-145); TOTAL PROTEIN 7.4 g/dL (6.3-8.2)
[2016-07-09 19:17] LABS: CREATINE KINASE MB 2.33 ng/mL (<4.55)
[2016-07-09 19:18] LABS: TROPONIN I < 0.012 ng/mL
[2016-07-09 21:11] VITALS: BP 125/83
== END 2016-07-09 21:13 | disposition home or self-care (01) ==
LOC: ER 15:14
DX: I26.99 Other pulmonary embolism without acute cor pulmonale (principal); R55 Syncope and collapse; R53.1 Weakness; R00.2 Palpitations; R61 Generalized hyperhidrosis; I10 Essential (primary) hypertension; Z86.718 Personal history of other venous thrombosis and embolism
CPT/HCPCS: 36415; 71275; 80053; 81001; 82550; 82553; 84484; 85025; 93005; 93010; 99285

== ENCOUNTER → 2016-08-16 | Outpatient (CLI) | payer BC ==
--- NOTE | 2016-08-16 14:44 | RADIOLOGY REPORT (SQ) ---
EXAM DESCRIPTION: CT SOFT TISSUE NECK WITH COMPLETED DATE/TIME: 08/16/2016 1:22 pm REASON FOR STUDY: SOFT TISSUE DISORDER, UNSPEC (M79.9) M79.9 SOFT TISSUE DISORDER, UNSPECIFIED COMPARISON: None. TECHNIQUE: Post IV contrasted scanning from skull base through lung apices with review of bone, soft tissue and lung windows. Reconstructed coronal and sagittal MPR images reviewed. All images stored on PACS. All CT scanners at this facility use dose modulation, iterative reconstruction, and/or weight based d osing when appropriate to reduce radiation dose to as low as reasonably achievable (ALARA). [facility]: Dose Right [facility]: CareDose [facility]: Dose Right [facility]: Teradose 4D [facility]: TradeCard CONTRAST TYPE AND DOSE: 75mL Isovue 370- low osmolar. RENAL FUNCTION: Creatinine 0.9 RADIATION DOSE: 22.38 mGy. LIMITATIONS: None. FINDINGS: SKULL BASE: Intact. MAJOR SALIVARY GLANDS: No solid or cystic masses. No inflammatory changes. LYMPHADENOPATHY: No adenopathy. MUCOSAL MASSES OR ASYMMETRY: No mucosal masses or asymmetry. LARYNX/CORDS: No abnormal findings. VASCULAR STRUCTURES: The major vessels are patent. LUNG APICES: Clear. BONES: Intact. THYROID: Normal size. No masses. PARANASAL SINUSES: Clear. OTHER: No other significant finding. IMPRESSION: NO SIGNIFICANT FINDING IN THE SOFT TISSUES OF THE NECK. TECHNICAL DOCUMENTATION: JOB ID: [id number] Quality ID # [id number]: Final reports with documentation of one or more dose reduction techniques (e.g., Au tomated exposure control, adjustment of the mA and/or kV according to patient size, use of iterative reconstruction technique) 2010 [employer]- All Rights Reserved
== END ==
LOC: RAD 12:32
PROVIDERS: ATTEND Specialist
DX: M79.9 Soft tissue disorder, unspecified (principal)
CPT/HCPCS: 70491; 82565

== ENCOUNTER → 2016-10-19 | Outpatient (CLI) | payer BC ==
[2016-10-19 10:37] LABS: CHOLESTEROL 168.56 mg/dL (0-200); Direct HDL 32 mg/dL (>40); TRIGLYCERIDES 173 mg/dL (<150)
[2016-10-19 10:48] LABS: DIRECT LDL 105 mg/dL (<100)
[2016-10-19 10:49] LABS: FREE T3 4.13 pg/mL (2.77-5.27)
[2016-10-19 10:57] LABS: VLDL CHOLESTEROL 34.6 mg/dL (10-31)
[2016-10-19 11:03] LABS: THYROID STIMULATING HORMONE 0.72 uIU/mL (0.47-4.68)
== END ==
LOC: OD 09:07
PROVIDERS: ATTEND Family Medicine
DX: E03.9 Hypothyroidism, unspecified (principal); E78.2 Mixed hyperlipidemia; R73.9 Hyperglycemia, unspecified
CPT/HCPCS: 36415; 80061; 83036; 84439; 84443; 84481

== ENCOUNTER 2016-12-27 14:02 | Emergency (ER) | payer BC ==
[2016-12-27] MEDS ORDERED: HYDROCODONE/ACETAMINOPHEN 5-325 MG (6 TAB/ER DISP) PO PRN (15:19)
[2016-12-27] MEDS ORDERED: LIDOCAINE 1% INJ-PF (10 MG/ML) 30 ML SDV INJ ONE (15:19)
[2016-12-27] MEDS ORDERED: CLINDAMYCIN HCL 150 MG CAPSULE PO ONE (15:19)
--- NOTE | 2016-12-27 15:40 | ER Document Report ---
ED Oral Problem - General Chief Complaint: Toothache Stated Complaint: TOOTH PAIN Time Seen by Provider: 12/27/16 15:08 Mode of Arrival: Ambulatory Information source: Patient Notes: 61-year-old male presents to ED for dental pain to the right upper wisdom tooth with swelling around the tooth and an obvious abscess. He states he has had pain off and on with this tooth for multiple weeks but for the last couple days it has become much worse and now his face feels like it might be swelling. TRAVEL OUTSIDE OF THE [place] IN LAST 30 DAYS: No - HPI Patient complains to provider of: Swelling of face, Swelling of jaw, Toothache Onset: Other - Several weeks Onset: Gradual Quality of pain: Pressure, Sharp, Throbbing Severity: Moderate Pain Level: 3 Swollen jaw/face: Mild Associated symptoms: Toothache Worsened by: Cold Relieved by: Nothing Similar symptoms previously: Yes Recently seen / treated by doctor/dentist: No - Related Data Allergies/Adverse Reactions: No Known Allergies Allergy (Verified 12/27/16 14:08) Past Medical History - General Information source: Patient - Social History Smoking Status: Current Every Day Smoker Cigarette use (# per day): Yes - one and half ppd Chew tobacco use (# tins/day): No Smoking Education Provided: Yes - less than 1 min Frequency of alcohol use: Occasional Drug Abuse: None Occupation: [employer] Lives with: Family Family History: Arthritis, CAD, CVA, Hyperlipidemia, Hypertension, Malignancy. denies: COPD, Thyroid Disfunction Patient has suicidal ideation: No Patient has homicidal ideation: No - Past Medical History Cardiac Medical History: Reports: Hx DVT, Hx Hypercholesterolemia, Hx Hypertension - pt's md took him bp meds, Hx Pulmonary Embolism Pulmonary Medical History: Reports: Hx Bronchitis EENT Medical History: Reports: None Neurological Medical History: Reports: None Endocrine Medical History: Reports: Other - thyroid problems that were corrected with medications unsure what Renal/ Medical History: Reports: None Malignancy Medical History: Reports None GI Medical History: Reports: Hx Gastroesophageal Reflux Disease Musculoskeltal Medical History: Reports Hx Arthritis, Reports Hx Musculoskeletal Trauma Skin Medical History: Reports None Psychiatric Medical History: Reports: Hx Depression Traumatic Medical History: Reports: None Past Surgical History: Reports: Hx Abdominal Surgery - hernia repair, Hx Orthopedic Surgery - bilateral knee replacements, Hx Tonsillectomy - 1960, Hx Umbilical Hernia - Immunizations Immunizations up to date: Yes Hx Diphtheria, Pertussis, Tetanus Vaccination: Yes - 2016 History of Influenza Vaccine for 12/2016 - 05/2017 Season: No Review of Systems - Review of Systems Constitutional: No symptoms reported EENT: Mouth pain, Mouth swelling, Dental problem Cardiovascular: No symptoms reported Respiratory: No symptoms reported Gastrointestinal: No symptoms reported Genitourinary: No symptoms reported Male Genitourinary: No symptoms reported Musculoskeletal: No symptoms reported Skin: No symptoms reported Hematologic/Lymphatic: No symptoms reported Neurological/Psychological: No symptoms reported -: Yes All other systems reviewed and negative Physical Exam - Vital signs Vitals: Temp Pulse Resp BP Pulse Ox 98.8 F 94 18 137/93 H 95 12/27/16 14:08 12/27/16 14:08 12/27/16 14:08 12/27/16 14:08 12/27/16 14:08 Interpretation: Normal - General General appearance: Appears well, Alert - HEENT Head: Normocephalic, Atraumatic Eyes: Normal Pupils: PERRL Ears: Normal External canal: Normal Tympanic membrane: Normal Sinus: Normal Nasal: Normal Mouth/Lips: Caries Mucous membranes: Normal Teeth diagram: 1 - Dental cavities with a dental abscess. Abscess was I indeed with a 18- gauge needle after injecting 1% lidocaine. Patient tolerated procedure well - Respiratory Respiratory status: No respiratory distress Chest status: Nontender Breath sounds: Normal Chest palpation: Normal - Cardiovascular Rhythm: Regular Heart sounds: Normal auscultation Murmur: No - Abdominal Inspection: Normal Distension: No distension Bowel sounds: Normal Tenderness: Nontender Organomegaly: No organomegaly - Back Back: Normal, Nontender - Extremities General upper extremity: Normal inspection, Nontender, Normal color, Normal ROM , Normal temperature General lower extremity: Normal inspection, Nontender, Normal color, Normal ROM , Normal temperature, Normal weight bearing. No: Lei's sign - Neurological Neuro grossly intact: Yes Cognition: Normal Orientation: AAOx4 [place] Coma Scale Eye Opening: Spontaneous [place] Coma Scale Verbal: Oriented [place] Coma Scale Motor: Obeys Commands [place] Coma Scale Total: 15 Speech: Normal Motor strength normal: LUE, RUE, LLE, RLE Sensory: Normal - Psychological Associated symptoms: Normal affect, Normal mood - Skin Skin Temperature: Warm Skin Moisture: Dry Skin Color: Normal Course - Re-evaluation Re-evalutation: 12/27/16 19:58 Patient was treated with clindamycin after I&D an abscess to the area around tooth #1 where he had a dental abscess. Patient was instructed to follow-up with his primary doctor and with dentist. Patient was started on clindamycin for his dental abscess and dental cavity. Patient was also sent home with prescription for clindamycin and a [place] dispense pack. - Vital Signs Vital signs: Temp Pulse Resp BP Pulse Ox 98.7 F 90 16 128/87 H 98 12/27/16 16:04 12/27/16 16:04 12/27/16 16:04 12/27/16 16:04 12/27/16 16:04 Discharge - Discharge Clinical Impression: Dental abscess, Pain due to dental caries Condition: Stable Disposition: HOME, SELF-CARE Additional Instructions: TOOTHACHE: Your pain is due to dental decay. The tooth must be repaired in order for you to feel better. You will, therefore, be referred to a dentist. We do not have dentists on the staff at [facility]. Severe swelling or drainage around a tooth usually means a dental abscess. This also requires evaluation and treatment by the dentist, but antibiotics may be prescribed while awaiting dental treatment. You should be rechecked immediately if you develop major swelling of the face, increasing pain, a lump in the jaw or gums, headache, difficulty swallowing, or fever. ABSCESS: You have an abscess (boil). This a pus-forming infection, usually due to staph. Some boils may be left to drain on their own, but most require lancing. From the time the tender lump first appears, it may be three or four days before the abscess is ready to derek. Local heat and rest help at this stage of treatment. An antibiotic may prevent spread of the infection. Once the abscess is opened, packing may be placed into it. This is done so pus is not sealed inside by premature closure of the cavity. The packing will be removed at your follow-up visit or you may be advised to remove it yourself at home. Sometimes this packing must be replaced a few times during healing. The wound will heal with surprisingly little scar. Depending on the size and location of an abscess, healing can take one to four weeks. You may shower and wash the area around the incision site two or three times a day. Antibiotics may be prescribed, but are usually not necessary after an abscess has been drained. If you develop fever, chills, worsening pain, or increasing swelling in the area, call the doctor or return immediately. POST INCISION AND DRAINAGE: You have had an incision made to allow drainage of an abscess. The incision must remain open so that pus and debris can drain from the wound. If the abscess cavity is large, packing is placed. This keeps the tissues from collapsing and trapping pus inside, while the body shrinks the cavity. The packing may need to be replaced every day or two. The physician will instruct you on the packing. Keep a bulky dressing over the area. Replace it if it becomes saturated with blood or pus. Do not disturb the packing (if present). You may shower and cleanse the area with gentle soap and warm water two or three times a day. Local warmth may be soothing, and may promote faster healing. Return if you develop high fever or chills, or if you note spreading redness, increasing swelling, or increasing tenderness. ORAL NARCOTIC MEDICATION: You have been given a Tamecco dispense pack for pain control. This medication is a narcotic. It's best taken with food, as nausea can result if taken on an empty stomach. Don't operate machinery or drive within six hours of taking this medication. Do not combine this medicine with alcohol, or with any medication which can cause sedation (such as cold tablets or sleeping pills) unless you get permission from the physician. Narcotics tend to cause constipation. If possible, drink plenty of fluids and eat a diet high in fiber and fruits. Please be aware that prescription narcotics also have the potential for abuse. People become addicted to these medications because of the general sense of wellbeing that they induce. This feeling along with a significant reduction in tension, anxiety, and aggression provides a stimulating seductive quality to these drugs. Once your pain is under control, we encourage you to discard your unused narcotics. CLINDAMYCIN: You have been given a prescription for the antibiotic clindamycin. It is often prescribed for infections in the mouth, such as dental infections or abscesses, and for skin infections due to MRSA. It's important that you take all the medication, unless instructed otherwise by your physician. Failure to complete the entire course can result in relapse of your condition. Common side effects of antibiotics include nausea, intestinal cramping, or diarrhea. Women may develop vaginal yeast infections, and babies can get yeast (thrush) in the mouth following the use of antibiotics. Contact your physician if you develop significant side effects from this medication. Allergy to this antibiotic can result in hives, wheezing, faintness, or itching. If symptoms of allergy occur, stop the medication and call the doctor. FOLLOW-UP CARE: You have been referred for follow-up care to the dentists listed below. Call the dentists office for an appointment as you were instructed or within the next two days. If you experience worsening or a significant change in your symptoms, notify the physician immediately or return to the Emergency Department at any time for re-evaluation. [facility] [address] [place], [place] Saturday mornings, by appointment [facility] [address] [place] [address] [facility] [place] [address] [facility] [address] [facility] (4th) [facility] [address] [email or web address] [address] [place] [address] Saturday- 8:00am to 5:00 pm Will see patients from other [facility]. Charges based on income and family size and accepts Medicare, Medicaid, and Insurances Will pull molars [facility] [address] Hours of Operation 8:00 am - 4:30 pm weekdays The following dental offices accept Medicaid: [facility] Dr. Haynes Dr. Teran Dr. Harris Dr. Ortiz Girma [place], [place], and [facility] oral surgery Dr. Crandall ([place]) Dr. Regalado ([place]) [facility] Drs. Dutton ([place]) Dr. Lowry ([place]) [facility] Dr. Limon ([place]) Drs. Mcmillan and ([place]) Medicaid Care Line Prescriptions: Clindamycin HCl 300 mg PO Q6 #28 capsule Forms: Elevated Blood Pressure, Smoking Cessation Education, Return to Work Referrals: KAILASH GAGE MD [Primary Care Provider] - Follow up as needed
[2016-12-27 16:05] VITALS: BP 128/87
== END 2016-12-27 16:05 | disposition home or self-care (01) ==
LOC: ER 14:02
PROC: 0C9WXZ0 Drainage of Upper Tooth, External Approach, Single (ICD-10-PCS; principal; 2016-12-27)
DX: K04.7 Periapical abscess without sinus (principal); K02.9 Dental caries, unspecified; R22.0 Localized swelling, mass and lump, head; F17.210 Nicotine dependence, cigarettes, uncomplicated; E78.00 Pure hypercholesterolemia, unspecified; I10 Essential (primary) hypertension; Z96.653 Presence of artificial knee joint, bilateral; Z86.711 Personal history of pulmonary embolism; Z86.718 Personal history of other venous thrombosis and embolism
CPT/HCPCS: 99282; 41800; J3490

== ENCOUNTER 2017-01-23 21:50 | Emergency (ER) | payer BC ==
--- NOTE | 2017-01-23 22:25 | RADIOLOGY REPORT (SQ) ---
EXAM DESCRIPTION: ELBOW RIGHT OVER 2 VIEWS COMPLETED DATE/TIME: 01/23/2017 10:13 pm REASON FOR STUDY: pain COMPARISON: None. NUMBER OF VIEWS: Four views. TECHNIQUE: AP, lateral, and both oblique radiographic images acquired of the right elbow. LIMITATIONS: None. FINDINGS: MINERALIZATION: Normal. BONES: No acute fracture or dislocation. No worrisome bone lesions. JOINT: No effusion. SOFT TISSUES: No soft tissue swelling. No foreign body. OTHER: No other significant finding. IMPRESSION: NEGATIVE STUDY OF THE RIGHT ELBOW. NO RADIOGRAPHIC EVIDENCE OF ACUTE INJURY. TECHNICAL DOCUMENTATION: JOB ID: [id number] [employer]- All Rights Reserved
--- NOTE | 2017-01-24 00:27 | ER Document Report ---
ED General - General Chief Complaint: Elbow Injury Stated Complaint: RIGHT ELBOW INJURY Time Seen by Provider: 01/23/17 23:56 Notes: Patient is a 61-year-old male who presents with right elbow pain. He states when he was driving home from work his elbow felt "different" and said his jacket and was painful when he struck it against the steering wheel. He denies any history of similar symptoms in the past. 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 Does describe the discomfort the area is a mild, constant, throbbing pain. Notes that moving elbow worsens the pain. He has not tried anything for improvement of the pain. He has not seen his primary care doctor regarding today's concerns. He has not had any fever or constitutional symptoms. TRAVEL OUTSIDE OF THE [place] IN LAST 30 DAYS: No - Related Data Allergies/Adverse Reactions: No Known Allergies Allergy (Verified 01/23/17 21:57) Past Medical History - General Information source: Patient - Social History Smoking Status: Current Every Day Smoker Frequency of alcohol use: None Drug Abuse: None Lives with: Spouse/Significant other Family History: Arthritis, CAD, CVA, Hyperlipidemia, Hypertension, Malignancy. denies: COPD, Thyroid Disfunction Patient has suicidal ideation: No Patient has homicidal ideation: No - Past Medical History Cardiac Medical History: Reports: Hx DVT, Hx Hypercholesterolemia, Hx Hypertension - pt's md took him bp meds, Hx Pulmonary Embolism Pulmonary Medical History: Reports: Hx Bronchitis Denies: Hx Tuberculosis Renal/ Medical History: Denies: Hx Peritoneal Dialysis GI Medical History: Reports: Hx Gastroesophageal Reflux Disease Musculoskeltal Medical History: Reports Hx Arthritis, Reports Hx Musculoskeletal Trauma Psychiatric Medical History: Reports: Hx Depression Past Surgical History: Reports: Hx Abdominal Surgery - hernia repair, Hx Herniorrhaphy, Hx Orthopedic Surgery - bilateral knee replacements, Hx Tonsillectomy - 1960, Hx Umbilical Hernia - Immunizations Immunizations up to date: Yes Hx Diphtheria, Pertussis, Tetanus Vaccination: Yes - 2015 Review of Systems - Review of Systems Notes: Constitutional: Negative for fever. HENT: Negative for sore throat. Eyes: Negative for visual changes. Cardiovascular: Negative for chest pain. Respiratory: Negative for shortness of breath. Gastrointestinal: Negative for abdominal pain, vomiting or diarrhea. Genitourinary: Negative for dysuria. Musculoskeletal: Positive for right elbow pain Skin: Negative for rash. Neurological: Negative for headaches, weakness or numbness. 10 point ROS negative except as marked above and in HPI. Physical Exam - Vital signs Vitals: Temp Pulse Resp BP Pulse Ox 97.8 F 85 18 129/80 H 96 01/23/17 21:57 01/23/17 21:57 01/23/17 21:57 01/23/17 21:57 01/23/17 21:57 Interpretation: Normal Notes: PHYSICAL EXAMINATION: GENERAL: Well-appearing, well-nourished and in no acute distress. HEAD: Atraumatic, normocephalic. EYES: Pupils equal round and reactive to light, extraocular movements intact, sclera anicteric, conjunctiva are normal. ENT: nares patent, oropharynx clear without exudates. Moist mucous membranes. NECK: Normal range of motion, supple without lymphadenopathy LUNGS: Breath sounds clear to auscultation bilaterally and equal. No wheezes rales or rhonchi. HEART: Regular rate and rhythm without murmurs ABDOMEN: Soft, nontender, normoactive bowel sounds. No guarding, no rebound. No masses appreciated. EXTREMITIES: Normal range of motion, no pitting or edema. No cyanosis. Small bursitis of the right olecranon NEUROLOGICAL: No focal neurological deficits. Moves all extremities spontaneously and on command. PSYCH: Normal mood, normal affect. SKIN: Warm, Dry, normal turgor, no rashes or lesions noted. Course - Re-evaluation Re-evalutation: 01/24/17 00:25 Patient presents with a mild right elbow olecranon bursitis. X-ray is unremarkable without any evidence of fracture dislocation patient does not endorse any significant pain to the area only states that it felt irritated when he pressed it against the steering wheel. There is no erythema or fluctuance to the area. This does not appear to be infected. I recommended NSAIDs, rest, and outpatient follow-up. At this time will discharge with return precautions and follow-up recommendations. Verbal discharge instructions given a the bedside and opportunity for questions given. Medication warnings reviewed. Patient is in agreement with this plan and has verbalized understanding of return precautions and the need for primary care follow-up in the next 24-72 hours. - Vital Signs Vital signs: Temp Pulse Resp BP Pulse Ox 97.8 F 76 16 115/77 90 L 01/23/17 21:57 01/24/17 00:57 01/24/17 00:57 01/24/17 00:57 01/24/17 00:57 - Diagnostic Test Radiology reviewed: Image reviewed, Reports reviewed Radiology results interpreted by me: 01/24/17 00:26 Right elbow: No acute fracture or dislocation Discharge - Discharge Clinical Impression: Olecranon bursitis, right elbow Condition: Good Disposition: HOME, SELF-CARE Additional Instructions: Please apply the Voltaren gel to the elbow as needed for discomfort and swelling. Apply heat or ice to the area whichever provides more relief. Try to avoid overuse of the area as this will worsen the swelling and discomfort. Return if you have worsening pain, weakness, numbness, or any other symptoms that are worrisome to you. Prescriptions: Diclofenac Sodium [Voltaren] 100 gm TP TID PRN #100 gel..gram. PRN Reason: Referrals: KAILASH GAGE MD [Primary Care Provider] - Follow up as needed
[2017-01-24 00:59] VITALS: BP 115/77
== END 2017-01-24 01:00 | disposition home or self-care (01) ==
LOC: ER 21:50
DX: M70.21 Olecranon bursitis, right elbow (principal); M25.521 Pain in right elbow; I10 Essential (primary) hypertension; F17.200 Nicotine dependence, unspecified, uncomplicated; Z86.718 Personal history of other venous thrombosis and embolism; Z86.711 Personal history of pulmonary embolism
CPT/HCPCS: 99283

== ENCOUNTER → 2017-04-09 | Outpatient (CLI) | payer BC ==
[2017-04-09 12:14] LABS: ALANINE AMINOTRANSFERASE 39 U/L (21-72); ALBUMIN 4.2 g/dL (3.5-5.0); ALKALINE PHOSPHATASE 121 U/L (38-126); ANION GAP 7 (5-19); ASPARTATE AMINO TRANSFERASE 26 U/L (17-59); BILIRUBIN,DIRECT 0.2 mg/dL (0.0-0.4); BILIRUBIN,TOTAL 0.7 mg/dL (0.2-1.3); BLOOD UREA NITROGEN 12 mg/dL (7-20); CALCIUM 9.7 mg/dL (8.4-10.2); CARBON DIOXIDE 25 mmol/L (22-30); CHLORIDE 107 mmol/L (98-107); CHOLESTEROL 156.94 mg/dL (0-200); GLUCOSE 113 mg/dL (75-110); SODIUM 139.1 mmol/L (137-145); TOTAL PROTEIN 7.1 g/dL (6.3-8.2); TRIGLYCERIDES 256 mg/dL (<150)
[2017-04-09 12:27] LABS: DIRECT LDL 79 mg/dL (<100)
[2017-04-09 12:32] LABS: FREE T3 4.21 pg/mL (2.77-5.27); FREE T4 (FREE THYROXINE) 0.99 ng/dL (0.78-2.19)
[2017-04-09 12:45] LABS: THYROID STIMULATING HORMONE 0.89 uIU/mL (0.47-4.68)
[2017-04-09 12:47] LABS: VLDL CHOLESTEROL 51.2 mg/dL (10-31)
== END ==
LOC: OD 10:45
PROVIDERS: ATTEND Family Medicine
DX: Z12.5 Encounter for screening for malignant neoplasm of prostate (principal); R73.9 Hyperglycemia, unspecified; E03.9 Hypothyroidism, unspecified; E78.2 Mixed hyperlipidemia; Z79.899 Other long term (current) drug therapy
CPT/HCPCS: 36415; 80053; 80061; 83036; 84153; 84439; 84443; 84481

== ENCOUNTER → 2017-05-02 | Outpatient (CLI) | payer BC ==
[2017-05-04 08:39] LABS: HEPATITIS C VIRUS AB <0.1 s/co ratio (0.0-0.9)
[2017-05-05 06:02] LABS: TESTOSTERONE FREE (DIRECT) 6.2 pg/mL (6.6-18.1)
== END ==
LOC: OD 13:20
PROVIDERS: ATTEND Family Medicine
DX: Z11.59 Encounter for screening for other viral diseases (principal); E29.1 Testicular hypofunction
CPT/HCPCS: 36415; 84402; 84403; 86803; 86804

== ENCOUNTER → 2017-05-15 | Outpatient (CLI) | payer BC ==
--- NOTE | 2017-05-15 16:43 | RADIOLOGY REPORT (SQ) ---
EXAM DESCRIPTION: CT LUNG CANCER SCREENING COMPLETED DATE/TIME: 05/15/2017 4:28 pm REASON FOR STUDY: F17.210 NICOTINE DEPENDENCE, CIGARETTES, UNCOMPLICATED F17.210 NICOTINE DEPENDENC E, CIGARETTES, UNCOMPLICATED Has the patient had a Chest CT scan within the past year? Yes. Was the patient offered tobacco cessation counseling? Yes. Was the patient engaged in shared decision making for this test? Yes. Does the patient have signs or symptoms of Lung Cancer? No. Is the patient a smoker? Yes. How many packs per year? 547. How many years since quitting smoking? Current smoker. Patients age: 62. COMPARISON: 07/09/2016. TECHNIQUE: Low Dose CT scan performed of the chest without intravenous contrast for purposes of scre ening for lung cancer. Images reviewed with lung, soft tissue and bone windows. Reconstructed coron al and sagittal MPR images reviewed. All images stored on PACS. All CT scanners at this facility use dose modulation, iterative reconstruction, and/or weight based d osing when appropriate to reduce radiation dose to as low as reasonably achievable (ALARA). [facility]: Dose Right [facility]: CareDose [facility]: Dose Right [facility]: Teradose 4D [facility]: Bix RADIATION DOSE: mGy. . LIMITATIONS: None FINDINGS: LUNGS AND PLEURA: No masses or nodules. No pleural effusions or calcifications. No pne umothorax. No scarring or interstitial changes. HILAR AND MEDIASTINAL STRUCTURES: No identified masses. No abnormal nodes. HEART AND VASCULAR STRUCTURES: No aortic aneurysm. No pericardial effusion. No cardiac devices. CORONARY ARTERY CALCIFICATIONS: No significant calcifications. UPPER ABDOMEN, THYROID, BONES, OTHER SOFT TISSUES: No significant findings. IMPRESSION: NO SIGNIFICANT FINDING IN THE LUNGS ON NON-CONTRASTED CHEST CT. NO OTHER CLINICALLY SIGNIFICANT/POTENTIALLY CLINICALLY SIGNIFICANT FINDINGS LUNGRADS: LUNGRADS: 1 NEGATIVE. NO NODULES, OR DEFINITELY BENIGN NODULES MODIFIER: NONE RECOMMENDATION: Continue annual screening with LDCT in 12 months. COMMENT: CRITERIA: No lung nodules. Nodules with specific calcifications: Complete, central, popcorn, concentric rings and fat containin g nodules. TECHNICAL DOCUMENTATION: JOB ID: [id number] Quality ID # [id number]: Final reports with documentation of one or more dose reduction techniques (e.g., Au tomated exposure control, adjustment of the mA and/or kV according to patient size, use of iterative reconstruction technique) 2010 [facility] Radiology Reading location - IP/workstation name: [email or web address]
== END ==
LOC: RAD 16:24
PROVIDERS: ATTEND Family Medicine
DX: Z12.2 Encounter for screening for malignant neoplasm of respiratory organs (principal); F17.210 Nicotine dependence, cigarettes, uncomplicated
CPT/HCPCS: G0297

== ENCOUNTER → 2017-05-30 | Outpatient (CLI) | payer BC ==
[2017-06-01 07:41] LABS: LUTEINIZING HORMONE 7.6 mIU/mL (1.7-8.6)
[2017-06-01 15:46] LABS: FOLLICLE STIMULATING HORMONE 8.3 mIU/mL (1.5-12.4)
== END ==
LOC: OD 13:50
PROVIDERS: ATTEND Family Medicine
DX: E29.1 Testicular hypofunction (principal)
CPT/HCPCS: 36415; 83001; 83002

== ENCOUNTER → 2017-06-06 | Outpatient (CLI) | payer BC ==
--- NOTE | 2017-06-06 12:12 | RADIOLOGY REPORT (SQ) ---
EXAM DESCRIPTION: U/S THYROID/SFT TISS HD NECK COMPLETED DATE/TIME: 06/06/2017 11:15 am REASON FOR STUDY: NONSPECIFIC LYMPHADENITIS, UNSPECIFIED (I88.9) I88.9 NONSPECIFIC LYMPHADENITIS, U NSPECIFIED COMPARISON: None. TECHNIQUE: Dynamic and static uriarte-scale images acquired of the thyroid gland. Selected additional c olor/power Doppler images recorded. All images stored to PACS. LIMITATIONS: None. FINDINGS: RIGHT LOBE: Normal size. Homogeneous echotexture. No cystic or solid masses. LEFT LOBE: Normal size. Homogeneous echotexture. No cystic or solid masses. ISTHMUS: Normal size. Homogeneous echotexture. No cystic or solid masses. OTHER: No adenopathy. IMPRESSION: No evidence of mass or adenopathy. TECHNICAL DOCUMENTATION: JOB ID: [id number] [facility]- All Rights Reserved Reading location - IP/workstation name: [email or web address]
== END ==
LOC: RAD 10:31
PROVIDERS: ATTEND Family Medicine
DX: I88.9 Nonspecific lymphadenitis, unspecified (principal)
CPT/HCPCS: 76536

== ENCOUNTER → 2017-08-07 | Outpatient (CLI) | payer BC ==
--- NOTE | 2017-08-07 10:31 | WOMENS IMAGING REPORT ---
EXAM DESCRIPTION: BONE DENSITY HIP/SPINE COMPLETED DATE/TIME: 08/07/2017 8:36 am REASON FOR STUDY: TESTICULAR HYPOFUNCTION; E29.1 E29.1 TESTICULAR HYPOFUNCTION COMPARISON: None. TECHNIQUE: Dual-Energy X-ray Absorptiometry (DEXA) of the AP Spine and Hip. LIMITATIONS: None. FINDINGS: LUMBAR SPINE: The bone mineral density (BMD) measured from L1-L4 in the AP projection correlates with a T-score of +0.4, which is normal as defined by the World Health Organization. HIP: The bone mineral density (BMD) measured in the left femoral neck at the hip correlates with a T-score of -1.0, which is osteopenic as defined by the World Health Organization. IMPRESSION: 1. LUMBAR SPINE: Normal 2. HIP: Osteopenic COMMENT: The World Health Organization defines low BMD as follows: T-score: Normal: Greater than -1.0 Osteopenia: Between -1.0 and -2.5 Osteoporosis: Less than -2.5 without fractures Established osteoporosis: Less than -2.5 with fractures In general, you may wish to consider: Diagnosis Treatment Follow-up DEXA Normal BMD Prevention 2-3 years Osteopenia Prevention/Therapy 1-2 years Osteoporosis Therapy Yearly TECHNICAL DOCUMENTATION: JOB ID: [id number] [employer]- All Rights Reserved Reading location - IP/workstation name: [facility] [place]
== END ==
LOC: WI 08:14
PROVIDERS: ATTEND Family Medicine
DX: E29.1 Testicular hypofunction (principal)
CPT/HCPCS: 77080

== ENCOUNTER 2017-10-07 06:50 | Emergency (ER) | payer BC ==
[2017-10-07 08:34] LABS: ABSOLUTE BASOPHILS # (AUTO) 0.1 10^3/uL (0.0-0.2); ABSOLUTE EOSINOPHILS # (AUTO) 0.1 10^3/uL (0.0-0.6); ABSOLUTE LYMPHOCYTES (AUTO) 1.3 10^3/uL (0.5-4.7); ABSOLUTE MONOCYTES (AUTO) 0.5 10^3/uL (0.1-1.4); BASOPHILS % (AUTO) 1.2 % (0-2); EOSINOPHILS % (AUTO) 1.6 % (0-6); HEMOGLOBIN 13.7 g/dL (13.5-17.0); LYMPHOCYTES % (AUTO) 22.3 % (13-45); MEAN CORPUSCULAR HEMOGLOBIN 28.8 pg (27.0-33.4); MEAN CORPUSCULAR HGB CONC 34.3 g/dL (32.0-36.0); MEAN CORPUSCULAR VOLUME 84 fl (80-97); MONOCYTES % (AUTO) 8.5 % (3-13); PLATELET COUNT 135 10^3/uL (150-450); RED BLOOD COUNT 4.77 10^6/uL (4.35-5.55); RED CELL DISTRIBUTION WIDTH 14.7 % (11.5-14.0); SEGMENTED NEUTROPHILS % (AUTO) 66.4 % (42-78); TOTAL CELLS COUNTED % (AUTO) 100 %
[2017-10-07 08:40] LABS: INTERNATIONAL RATION (INR) 2.52; PROTHROMBIN TIME 28.4 SEC (11.4-15.4)
[2017-10-07 08:41] LABS: PARTIAL THROMBOPLASTIN TIME 53.2 SEC (23.5-35.8)
[2017-10-07 08:46] LABS: ALANINE AMINOTRANSFERASE 33 U/L (21-72); ALBUMIN 3.8 g/dL (3.5-5.0); ALKALINE PHOSPHATASE 121 U/L (38-126); ANION GAP 6 (5-19); ASPARTATE AMINO TRANSFERASE 35 U/L (17-59); BILIRUBIN,DIRECT 0.2 mg/dL (0.0-0.4); BILIRUBIN,TOTAL 0.5 mg/dL (0.2-1.3); BLOOD UREA NITROGEN 10 mg/dL (7-20); CALCIUM 8.4 mg/dL (8.4-10.2); CARBON DIOXIDE 29 mmol/L (22-30); CHLORIDE 108 mmol/L (98-107); GLUCOSE 127 mg/dL (75-110); POTASSIUM 3.8 mmol/L (3.6-5.0); SODIUM 143.3 mmol/L (137-145); TOTAL PROTEIN 7.2 g/dL (6.3-8.2)
--- NOTE | 2017-10-07 09:41 | ER Document Report ---
ED Extremity Problem, Lower - General Chief Complaint: Leg Pain Stated Complaint: SEVERE LEG PAIN,LEFT LOWER EXTREMITY SWELLING Time Seen by Provider: 10/07/17 07:21 Mode of Arrival: Ambulatory Information source: Patient Notes: 62-year-old male complaining of left lower leg pain and swelling since Saturday. 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 He takes warfarin 7 mg per day. No fever or chills. No chest pain or shortness of breath. He is not sure of this is muscle soreness or another DVT. This started as bilateral knee pain. TRAVEL OUTSIDE OF THE [place] IN LAST 30 DAYS: No - Related Data Allergies/Adverse Reactions: No Known Allergies Allergy (Verified 01/23/17 21:57) Past Medical History - General Information source: Patient - Social History Smoking Status: Current Every Day Smoker Chew tobacco use (# tins/day): No Frequency of alcohol use: None Drug Abuse: None Lives with: Family Family History: Arthritis, CAD, CVA, Hyperlipidemia, Hypertension, Malignancy Patient has suicidal ideation: No Patient has homicidal ideation: No - Past Medical History Cardiac Medical History: Reports: Hx DVT, Hx Hypercholesterolemia, Hx Hypertension - pt's md took him bp meds, Hx Pulmonary Embolism Pulmonary Medical History: Reports: Hx Bronchitis Renal/ Medical History: Denies: Hx Peritoneal Dialysis GI Medical History: Reports: Hx Gastroesophageal Reflux Disease Musculoskeletal Medical History: Reports Hx Arthritis, Reports Hx Musculoskeletal Trauma Psychiatric Medical History: Reports: Hx Depression Past Surgical History: Reports: Hx Abdominal Surgery - hernia repair, Hx Herniorrhaphy, Hx Orthopedic Surgery - bilateral knee replacements, Hx Tonsillectomy - 1960, Hx Umbilical Hernia - Immunizations Immunizations up to date: Yes Hx Diphtheria, Pertussis, Tetanus Vaccination: Yes - 2015 Review of Systems - Review of Systems Constitutional: No symptoms reported EENT: No symptoms reported Cardiovascular: No symptoms reported Respiratory: No symptoms reported Gastrointestinal: No symptoms reported Genitourinary: No symptoms reported Male Genitourinary: No symptoms reported Musculoskeletal: See HPI Skin: No symptoms reported Hematologic/Lymphatic: No symptoms reported Neurological/Psychological: No symptoms reported Physical Exam - Vital signs Vitals: Temp Pulse Resp BP Pulse Ox 98.3 F 81 18 148/90 H 95 10/07/17 07:16 10/07/17 07:16 10/07/17 07:16 10/07/17 07:16 10/07/17 07:16 Interpretation: Normal - General General appearance: Appears well, Alert - HEENT Head: Normocephalic, Atraumatic Eyes: Normal Pupils: PERRL Neck: Supple - Respiratory Respiratory status: No respiratory distress Chest status: Nontender Breath sounds: Normal Chest palpation: Normal - Cardiovascular Rhythm: Regular Heart sounds: Normal auscultation Murmur: No - Abdominal Inspection: Normal Distension: No distension Bowel sounds: Normal Tenderness: Nontender Organomegaly: No organomegaly - Back Back: Normal, Nontender - Extremities General upper extremity: Normal inspection, Nontender, Normal color, Normal ROM , Normal temperature General lower extremity: Normal inspection, Nontender, Normal color, Normal ROM , Normal temperature, Normal weight bearing. No: Lei's sign Calf: Tender - tender over medial posterior left calf muscle, warm, some erythema and lyphangitis medial post. knee - Neurological Neuro grossly intact: Yes Cognition: Normal Orientation: AAOx4 [place] Coma Scale Eye Opening: Spontaneous [place] Coma Scale Verbal: Oriented [place] Coma Scale Motor: Obeys Commands [place] Coma Scale Total: 15 Speech: Normal Motor strength normal: LUE, RUE, LLE, RLE Sensory: Normal - Psychological Associated symptoms: Normal affect, Normal mood - Skin Skin Temperature: Warm Skin Moisture: Dry Skin Color: Normal Skin irregularity: negative: Rash Course - Re-evaluation Re-evalutation: 10/07/17 09:36 VDU prelim is negative per US tech. INR 2 52 10/07/17 09:37 Dr. Cisse looked at the leg and said to treat for possible cellulitis with close follow-up 10/07/17 10:34 10/07/17 11:14 Dr. Jorge Soto called the venous Doppler ultrasound is negative for DVT - Vital Signs Vital signs: Temp Pulse Resp BP Pulse Ox 98.3 F 80 18 148/90 H 95 10/07/17 07:16 10/07/17 07:52 10/07/17 07:52 10/07/17 07:16 10/07/17 07:16 - Laboratory Result Diagrams: 10/07/17 08:11 10/07/17 08:11 Laboratory results interpreted by me: 10/07/17 10/07/17 10/07/17 08:11 08:11 08:11 RDW 14.7 H Plt Count 135 L PT 28.4 H APTT 53.2 H Chloride 108 H Glucose 127 H Discharge - Discharge Clinical Impression: Left leg pain, Left lower leg erythema Condition: Good Disposition: HOME, SELF-CARE Instructions: Cellulitis ([facility]), Cephalexin ([facility]), Elevation & Warmth ([facility]), Sulfa Medications ([facility]), Warm Packs ([facility]) Additional Instructions: Elevate the leg Warm compress Take the antibiotics as prescribed See Dr. Eric tomorrow for recheck Copy of imaging and lab results given to you Prescriptions: Cephalexin Monohydrate [Keflex 500 mg Capsule] 500 mg PO QID #28 capsule Sulfamethoxazole/Trimethoprim [Sulfamethoxazole-Tmp Ds Tablet] 1 each PO BID # 14 tablet Forms: Return to Work Referrals: KAILASH GAGE MD [Primary Care Provider] - Follow up tomorrow
[2017-10-07] MEDS ORDERED: SULFAMETHOXAZOLE/TRIMETHOPRIM 800-160 MG TABLET PO ONE (10:31)
[2017-10-07] MEDS ORDERED: CEPHALEXIN 500 MG CAPSULE PO ONE (10:31)
[2017-10-07 11:22] VITALS: BP 147/90
--- NOTE | 2017-10-07 12:08 | XCELERA REPORT ---
[address] [address] Lower Extremity Venous Evaluation Name: ANDREW PEREZ Age: 62 yrs Gender: Male : 1955 Patient Status: Emergency Patient Location: ER Study Date: 10/07/2017 08:50 AM Procedure: Color flow and duplex imaging of the veins of the left lower extremity as well as the right Common Femoral vein. Reason For Study: left leg swelling, hx dvt Ordering Physician: YENIFER ELIZONDO Performed By: Rosalinda Stapleton Right Sided Venous Evaluation The right common femoral vein is fully compressible. Spontaneous and phasic flow is present in the right common femoral vein. Left Sided Venous Evaluation Normal vessel filling wall to wall, compression and augmentation as well as Colour flow down to the infrageniculate veins. Critical Findings Discussed with Yenifer Elizondo. In the ER, at about 1100. Interpretation Summary No duplex evidence of DVT or obstruction in the left lower extremity nor in the right Common Femoral vein. : YENIFER ELIZONDO > Tomás Soto
== END 2017-10-07 11:22 | disposition home or self-care (01) ==
LOC: ER 06:50
DX: I89.1 Lymphangitis (principal); L53.9 Erythematous condition, unspecified; M79.605 Pain in left leg; M79.89 Other specified soft tissue disorders; Q89.9 Congenital malformation, unspecified; I10 Essential (primary) hypertension; F17.200 Nicotine dependence, unspecified, uncomplicated; Z86.718 Personal history of other venous thrombosis and embolism; Z86.711 Personal history of pulmonary embolism; Z79.01 Long term (current) use of anticoagulants
CPT/HCPCS: 36415; 80053; 85025; 85610; 85730; 93971; 99284

== ENCOUNTER → 2017-10-25 | Outpatient (CLI) | payer BC ==
[2017-10-25 08:39] LABS: ABSOLUTE EOSINOPHILS # (AUTO) 0.2 10^3/uL (0.0-0.6); ABSOLUTE LYMPHOCYTES (AUTO) 1.7 10^3/uL (0.5-4.7); ABSOLUTE MONOCYTES (AUTO) 0.5 10^3/uL (0.1-1.4); ABSOLUTE NEUT (AUTO) 5.5 10^3/uL (1.7-8.2); BASOPHILS % (AUTO) 0.6 % (0-2); EOSINOPHILS % (AUTO) 1.9 % (0-6); HEMATOCRIT 41.7 % (37.9-51.0); HEMOGLOBIN 14.2 g/dL (13.5-17.0); LYMPHOCYTES % (AUTO) 21.9 % (13-45); MEAN CORPUSCULAR HEMOGLOBIN 29.1 pg (27.0-33.4); MEAN CORPUSCULAR HGB CONC 34.1 g/dL (32.0-36.0); MEAN CORPUSCULAR VOLUME 86 fl (80-97); MONOCYTES % (AUTO) 6.6 % (3-13); PLATELET COUNT 147 10^3/uL (150-450); RED BLOOD COUNT 4.87 10^6/uL (4.35-5.55); RED CELL DISTRIBUTION WIDTH 14.7 % (11.5-14.0); TOTAL CELLS COUNTED % (AUTO) 100 %
[2017-10-25 09:05] LABS: ALANINE AMINOTRANSFERASE 43 U/L (21-72); ALKALINE PHOSPHATASE 131 U/L (38-126); ANION GAP 10 (5-19); ASPARTATE AMINO TRANSFERASE 30 U/L (17-59); BILIRUBIN,DIRECT 0.3 mg/dL (0.0-0.4); BILIRUBIN,TOTAL 0.7 mg/dL (0.2-1.3); BLOOD UREA NITROGEN 9 mg/dL (7-20); CALCIUM 9.2 mg/dL (8.4-10.2); CARBON DIOXIDE 31 mmol/L (22-30); CHLORIDE 105 mmol/L (98-107); CHOLESTEROL 158.03 mg/dL (0-200); GLUCOSE 127 mg/dL (75-110); POTASSIUM 4.5 mmol/L (3.6-5.0); SODIUM 145.5 mmol/L (137-145); TOTAL PROTEIN 7.2 g/dL (6.3-8.2); TRIGLYCERIDES 371 mg/dL (<150)
[2017-10-25 09:20] LABS: FREE T3 3.81 pg/mL (2.77-5.27); FREE T4 (FREE THYROXINE) 0.96 ng/dL (0.78-2.19)
[2017-10-25 09:23] LABS: DIRECT LDL 57 mg/dL (<100)
[2017-10-25 09:26] LABS: VLDL CHOLESTEROL 74.2 mg/dL (10-31)
[2017-10-25 09:34] LABS: THYROID STIMULATING HORMONE 1.27 uIU/mL (0.47-4.68)
== END ==
LOC: OD 07:56
PROVIDERS: ATTEND Family Medicine
DX: E03.9 Hypothyroidism, unspecified (principal); R73.9 Hyperglycemia, unspecified; E78.2 Mixed hyperlipidemia; Z79.899 Other long term (current) drug therapy
CPT/HCPCS: 36415; 80053; 80061; 83036; 84439; 84443; 84481; 85025

== ENCOUNTER → 2017-12-29 | Outpatient (CLI) | payer BC ==
--- NOTE | 2017-12-29 13:46 | RADIOLOGY REPORT (SQ) ---
EXAM DESCRIPTION: SHOULDER RIGHT 2 OR MORE VIEWS COMPLETED DATE/TIME: 12/29/2017 12:41 pm REASON FOR STUDY: PAIN IN RIGHT SHOULDER M25.511 LIFTING INJURY COMPARISON: None. NUMBER OF VIEWS: Four views. TECHNIQUE: Internal rotation, external rotation, transaxillary and Y view images acquired of the rig ht shoulder. LIMITATIONS: None. FINDINGS: MINERALIZATION: Normal. BONES: No acute fracture or dislocation. No worrisome bone lesions. JOINTS: No glenohumeral malalignment. AC joint intact. VISUALIZED LUNGS AND RIBS: No pneumothorax. No rib fracture. SOFT TISSUES: No radiopaque foreign body. OTHER: No other significant finding. IMPRESSION: NEGATIVE STUDY OF THE RIGHT SHOULDER. NO RADIOGRAPHIC EVIDENCE OF ACUTE INJURY. TECHNICAL DOCUMENTATION: JOB ID: [id number] [employer]- All Rights Reserved Reading location - IP/workstation name: [email or web address]
== END ==
LOC: RAD 12:30
PROVIDERS: ATTEND Physician Assistant
DX: M25.511 Pain in right shoulder (principal)

== ENCOUNTER 2018-07-17 09:50 | Emergency (ER) | payer BC ==
[2018-07-17] MEDS ORDERED: LIDOCAINE 5% (700 MG) TRANSDERMAL ADH..PATCH TP ONE (11:29)
--- NOTE | 2018-07-17 11:34 | ER Document Report ---
HPI - HPI Patient complains to provider of: right flank pain Time Seen by Provider: 07/17/18 11:21 Onset: This morning Onset/Duration: Sudden Quality of pain: Achy Severity: Severe Pain Level: 5 Context: Patient presents emergency department with complaints of right side low back pain. Patient reports he woke up this morning with the pain. He reports pain goes away when he sits or remain still hurts when he moves. Denies urinary symptoms. Denies fever vomiting diarrhea. Denies trauma. Reports he works at [employer] out in the [email or web address] [place] could have lifted something heavy. Denies past medical history of back pain. Reports he took Tylenol this morning and it helped. Associated Symptoms: None Exacerbated by: Movement Relieved by: Sitting, Remaining still Similar symptoms previously: No Recently seen / treated by doctor: No Past Medical History - General Information source: Patient - Social History Smoking Status: Current Every Day Smoker Chew tobacco use (# tins/day): No Frequency of alcohol use: None Drug Abuse: None Occupation: tic Family History: Arthritis, CAD, CVA, Hyperlipidemia, Hypertension, Malignancy Patient has suicidal ideation: No Patient has homicidal ideation: No - Past Medical History Cardiac Medical History: Reports: Hx DVT, Hx Hypercholesterolemia, Hx Hy pertension, Hx Pulmonary Embolism Pulmonary Medical History: Reports: Hx Bronchitis Denies: Hx Tuberculosis Renal/ Medical History: Denies: Hx Peritoneal Dialysis GI Medical History: Reports: Hx Gastroesophageal Reflux Disease Musculoskeletal Medical History: Reports Hx Arthritis, Reports Hx Musc uloskeletal Trauma Psychiatric Medical History: Reports: Hx Depression Past Surgical History: Reports: Hx Abdominal Surgery - hernia repair, Hx Hernio rrhaphy, Hx Orthopedic Surgery - bilateral knee replacements, Hx Tonsillectomy - 1960, Hx Umbilical Hernia - Immunizations Immunizations up to date: Yes Hx Diphtheria, Pertussis, Tetanus Vaccination: Yes - 2016 Vertical Provider Document - CONSTITUTIONAL Agree With Documented VS: Yes Exam Limitations: No Limitations General Appearance: WD/WN, No Apparent Distress - INFECTION CONTROL TRAVEL OUTSIDE OF THE [place] IN LAST 30 DAYS: No - HEENT HEENT: Atraumatic, Normocephalic - NECK Neck: Normal Inspection, Supple. negative: Lymphadenopathy-Left, Lymphadenopathy-Right - RESPIRATORY Respiratory: Breath Sounds Normal, No Respiratory Distress - CARDIOVASCULAR Cardiovascular: Regular Rate - GI/ABDOMEN Gastrointestinal: Abdomen Soft, Abdomen Non-Tender - BACK Back: Normal Inspection - No obvious deformity no erythema no swelling no warmth good distal movement and sensation. Patient complains of muscular pain with movement. No flank pain. negative: CVA Tenderness-Right, CVA Tenderness-Left - MUSCULOSKELETAL/EXTREMETIES Musculoskeletal/Extremeties: MANUELA MAHMOOD - NEURO Level of Consciousness: Awake, Alert, Appropriate - DERM Integumentary: Warm, Dry Adult Front & Back Diagram: 1 - Reports pain with movement Course - Re-evaluation Re-evalutation: 07/17/18 11:49 Patient reports lidocaine patch helped with his back pain. Prescription wrote. Patient was instructed to return to the emergency department for worsening pain difficulty urinating fever concerns he verbalized understanding. - Vital Signs Vital signs: Temp Pulse Resp BP Pulse Ox 98.1 F 84 18 152/96 H 95 07/17/18 09:56 07/17/18 09:56 07/17/18 09:56 07/17/18 09:56 07/17/18 09:56 Discharge - Discharge Clinical Impression: Muscular pain Condition: Stable Disposition: HOME, SELF-CARE Instructions: Ice Packs ([facility]), Muscle Strain ([facility]) Additional Instructions: *You have been evaluated for back muscle pain *apply patch as prescribed, take tylenol as indicated *Rest/Ice- heat as directed *Follow up with a primary care provider within one week for recheck *Return to ED for worsening condition, changes, needs, fever, difficulty urinating, concerns Prescriptions: Lidocaine [Lidoderm 5% (700 mg) Transdermal Patch] 1 patch TP DAILY #30 adh..patch Forms: Return to Work Referrals: KAILASH GAGE MD [Primary Care Provider] - Follow up as needed
[2018-07-17 11:56] VITALS: BP 137/87
== END 2018-07-17 11:56 | disposition home or self-care (01) ==
LOC: ER 09:50
DX: M54.5 Low back pain (principal); F17.200 Nicotine dependence, unspecified, uncomplicated; I10 Essential (primary) hypertension
CPT/HCPCS: 99283

== ENCOUNTER → 2019-09-28 | Outpatient (CLI) | payer BC ==
[2019-09-28 13:56] LABS: BLOOD UREA NITROGEN 15 mg/dL (7-20)
== END ==
LOC: OD 12:37
PROVIDERS: ATTEND Urology
DX: R31.29 Other microscopic hematuria (principal)
CPT/HCPCS: 36415; 82565; 84153; 84520

== ENCOUNTER → 2019-10-27 | Outpatient (CLI) | payer BC, OTHER ==
--- NOTE | 2019-10-27 13:52 | RADIOLOGY REPORT (SQ) ---
EXAM DESCRIPTION: CT CHEST WITH IMAGES COMPLETED DATE/TIME: 10/27/2019 1:20 pm REASON FOR STUDY: R22.2 LOCALIZED SWELLING, MASS AND LUMP, TRUNK R22.2 LOCALIZED SWELLING, MASS AND LUMP, TRUNK COMPARISON: 07/09/2016 TECHNIQUE: CT scan of the chest performed using helical scanning technique with dynamic intravenous contrast injection. Images reviewed with lung, soft tissue and bone windows. Reconstructed coronal and sagittal MPR and MIP images reviewed. All images stored on PACS. All CT scanners at this facility use dose modulation, iterative reconstruction, and/or weight based d osing when appropriate to reduce radiation dose to as low as reasonably achievable (ALARA). [facility]: Dose Right [facility]: CareDose [facility]: Dose Right [facility]: Teradose 4D [facility]: SprinkleBit CONTRAST TYPE AND DOSE: contrast/concentration: Isovue 350.00 mmol/ml; Total Contrast Delivered: 80. 0 ml; Total Saline Delivered: 44.9 ml RENAL FUNCTION: BUN 15 creatinine 1.03 RADIATION DOSE: CT Rad equipment meets quality standard of care and radiation dose reduction techniq ues were employed. CTDIvol: 16.5 mGy. DLP: 709 mGy-cm. . LIMITATIONS: None. FINDINGS: LUNGS AND PLEURA: No opacities, nodules, masses. No pneumothorax. No effusions. HILAR AND MEDIASTINAL STRUCTURES: There are some small nonspecific mediastinal nodes. These are subc entimeter sized. HEART AND VASCULAR STRUCTURES: No aneurysm or dissection. No central pulmonary emboli. No pericardi al effusion. HARDWARE: None in the chest. UPPER ABDOMEN: Stable hepatic cyst. The liver is slightly hypoattenuating. THYROID AND OTHER SOFT TISSUES: No masses. No adenopathy. BONES: No significant finding. OTHER: No other significant finding. IMPRESSION: 1. No significant finding in the chest. 2. There appears to be mild hepatic steatosis. TECHNICAL DOCUMENTATION: JOB ID: [id number] Quality ID # [id number]: Final reports with documentation of one or more dose reduction techniques (e.g., Au tomated exposure control, adjustment of the mA and/or kV according to patient size, use of iterative reconstruction technique) 2010 [employer]- All Rights Reserved Reading location - IP/workstation name: [email or web address]
== END ==
LOC: RAD 13:02
PROVIDERS: ATTEND Internal Medicine
DX: R22.2 Localized swelling, mass and lump, trunk (principal)
CPT/HCPCS: 71260

== ENCOUNTER → 2019-10-28 | Outpatient (CLI) | payer BC ==
[2019-10-28 15:39] VITALS: BP 116/64
--- NOTE | 2019-10-28 15:39 | ER RDC ASSESSMENT REPORT ---
Intake - In the Last 14 days Have you traveled outside [place]?: No Have you been in close contact with someone CONFIRMED: Yes Worked in Healthcare?: No - Symptoms Subjective Fever([place] feverish): No Chills: No Muscule Aches: No Runny Nose: No Sore Throat: No Cough (New or worsening chronic cough): No Shortness of breath: No Nausea or Vomiting: No Headache: No Abdominal Pain: No Diarrhea(3 or more loose stools in last 24 hours): No - Do you have any of the following Chronic lung disease: Asthma or emphysema or COPD: Yes Chronic Lung Disease Comment: History of COPD Cystic Fibrosis: No Diabetes: Yes High Blood Pressure: No Cardiovascular Disease: No Chronic Kidney Disease: No Chronic Liver Disease: No Chronic blood disorder like Sickle Cell Disease: No Weak immune system due to disease or medication: No Neurologic condition that limits movement: No Developmental delay - Moderate to Severe: No Recent (within past 2 weeks) or current : No Morbid Obesity (>100 pounds over ideal weight): No Obesity Comment: 6 feet 2 inches weight 243 pounds - Objective Temperature: 96.4 F Pulse Rate: 100 Respiratory Rate: 18 Blood Pressure: 116/64 O2 Sat by Pulse Oximetry: 95 Objective: Given above, testing performed: If Testing Performed: Test Specimen Type Sent to General - General Information source: Patient Notes: Patient here at [facility] for cover testing reports friend had lunch on Saturday with somebody who has tested positive patient denies any symptoms at this point friend has been tested but those results have not returned. Patient's PCP is Dr. Desai and plans to contact him this afternoon. - Related Data Allergies/Adverse Reactions: No Known Allergies Allergy (Verified 07/17/18 09:52) Past Medical History - General Information source: Patient - Social History Smoking Status: Current Every Day Smoker Cigarette use (# per day): Yes - A pack a day Smoking Education Provided: Yes - Quit smoking Family History: Arthritis, CAD, CVA, Hyperlipidemia, Hypertension, Malignancy - Past Medical History Cardiac Medical History: Reports: Hx DVT, Hx Hypercholesterolemia, Hx Hypertension, Hx Pulmonary Embolism Pulmonary Medical History: Reports: Hx Bronchitis Denies: Hx Tuberculosis Renal/ Medical History: Denies: Hx Peritoneal Dialysis GI Medical History: Reports: Hx Gastroesophageal Reflux Disease Musculoskeletal Medical History: Reports Hx Arthritis, Reports Hx Musculoskeletal Trauma Psychiatric Medical History: Reports: Hx Depression Past Surgical History: Reports: Hx Abdominal Surgery - hernia repair, Hx Herniorrhaphy, Hx Orthopedic Surgery - bilateral knee replacements, Hx Tonsillectomy - 1961, Hx Umbilical Hernia Physical Exam - General General appearance: Appears well, Alert In distress: None - PHYSICAL EXAMINATION: GENERAL: Well-appearing and in no acute distress. HEAD: Atraumatic, normocephalic. EYES: sclera anicteric, conjunctiva are normal. ENT: nares patent. Moist mucous membranes. NECK: Normal range of motion, supple without lymphadenopathy LUNGS: CTAB and equal. No wheezes rales or rhonchi. HEART: Regular rate and rhythm without murmurs ABDOMEN: Soft, nontender, normal bowel sounds, no guarding. EXTREMITIES: Normal range of motion, no pitting edema. No cyanosis. BACK: No midline tenderness, no step-off or deformity. No CVA tenderness NEUROLOGICAL: Cranial nerves grossly intact. Normal speech. Normal gait. PSYCH: Normal mood, normal affect. SKIN: Warm, Dry, normal turgor, no rashes or lesions noted Notes: PHYSICAL EXAMINATION: GENERAL: Well-appearing and in no acute distress. HEAD: Atraumatic, normocephalic. EYES: sclera anicteric, conjunctiva are normal. ENT: nares patent. Moist mucous membranes. NECK: Normal range of motion, supple without lymphadenopathy LUNGS: CTAB and equal. No wheezes rales or rhonchi. Respirations even and unlabored lung sounds clear. HEART: Regular rate and rhythm without murmurs ABDOMEN: Soft, nontender, normal bowel sounds, no guarding. EXTREMITIES: No cyanosis. NEUROLOGICAL: Normal speech. PSYCH: Normal mood, normal affect. SKIN: Warm, Dry, normal turgor, Diagnostic Results Laboratory Results: Pending cover testing results. Patient provided instructions regarding coverage to include: As a person under investigation for Covid 19, the [place] department of Health and Human Services, division of public health advises you to adhere to the following guidance until your test results are reported to you. If your test result is positive, you will receive additional information from your provider and your local health department at that time. Remain at home until you are cleared by the health provider or public health authorities. Keep a log of visitors to your home, notify any visitors to your home of your isolation status. If you plan to move to a new address or leave the county, notify the local health department in your County. Call your doctor or seek care if you have an urgent medical need. Before seeking medical care, call ahead to get instructions from the provider before arriving at the medical office clinic or hospital. Notify them that you are being tested for the virus that causes Covid 19 so that arrangements can be made, as necessary, to prevent transmission to others in the healthcare setting. Next, notify the local health department in your county. If a medical emergency arises and you need to call 911, inform the first responders that you are being tested for the virus that causes Covid 19. Next, notify the local health department in your county. Patient Education/Counseling Counseling/Education: Patient presents with upper respiratory symptoms worrisome for possible Covid 19. Patient does not have emergency worring symptoms such as difficulty breathing, shortness of breath, chest pain, pressure, confusion or cyanosis. Patient appears suitable for discharge. Patient's vital signs are stable and patient is nontoxic in appearance. Good return precautions have been discussed with patient, patient verbalized understanding and is agreeable with discharge plan of care at this time. [facility] Discharge - Discharge Clinical Impression: Encounter for screening laboratory testing for COVID-19 virus in asymptomatic patient Condition: Stable Disposition: Home; Selfcare
== END ==
LOC: RDC 15:06
PROVIDERS: ATTEND Nurse Practitioner Family
DX: Z03.818 Encounter for observation for suspected exposure to other biological agents ruled out (principal)
CPT/HCPCS: 87635; C9803; 99201; 99211